=== PATIENT | male | born 1950 | race Caucasian/White ===

== ENCOUNTER → 2017-09-30 08:35 | Outpatient (CLI) | payer MEDICARE, OTHER, SELFPAY ==
--- NOTE | 2017-09-30 08:42 | MR_ITS ---
MR head/brain wo con HISTORY: Severe headaches on the left side ITS.REASON: HEADACHES ORDERING PHYSICIAN: Toñito Calloway MD PATIENT AGE: 67 years COMPARISON: None TECHNIQUE: Standard multiplanar multiecho sequences are performed without contrast. FINDINGS: No midline shift, mass effect, intracranial hemorrhage, or hydrocephalus. No evidence of acute infarction. Small focus of increased T2 signal is present in the external capsule on the right anteriorly consistent with an old small lacunar infarction. There are mild periventricular and subcortical T2 white matter hyperintensities consistent with ischemic gliotic change from microvascular disease. No intra or extra-axial mass. Expected flow void is present in the carotid and basilar arteries. No large aneurysms are evident. Small uterus and may not be detected with this technique and may be better evaluated with MRA if clinically warranted. No mastoid effusion or sinus air-fluid level. Unremarkable calvarium. IMPRESSION: 1. No acute intracranial findings. 2. Old small right lacunar infarction with minimal periventricular ischemic gliotic change.
== END ==
PROVIDERS: Family Provider Internal Medicine Adolescent Medicine; PCP Internal Medicine Adolescent Medicine; Referring Provider Internal Medicine Adolescent Medicine; Visit Provider Internal Medicine Adolescent Medicine
DX: R51 Headache (principal)
CPT/HCPCS: 70551

== ENCOUNTER → 2017-11-20 08:49 | Outpatient (CLI) | payer MEDICARE, OTHER, SELFPAY ==
--- NOTE | 2017-11-20 08:50 | XR_ITS ---
XR foot wt bearing LT 3V COMPARISON: Right foot same date HISTORY: Left foot pain which becomes worse during the day TECHNIQUE: AP lateral and oblique weightbearing views FINDINGS: The tarsal bones metatarsals and phalanges appear intact with no evidence of recent or old fracture. The plantar arch is normal. There are small calcaneal spurs at the insertion of plantar tendon and Achilles tendon the plantar spur is larger left foot than right areas there is arterial calcification similar to the right foot. IMPRESSION: Calcaneal spurs as noted
--- NOTE | 2017-11-20 08:50 | XR_ITS ---
XR foot wt bearing RT 3V COMPARISON: Left foot same date HISTORY: Foot pain that becomes worse during the day TECHNIQUE: AP lateral and oblique views weightbearing FINDINGS: The tarsal bones metatarsals and phalanges appear intact with no evidence of recent or old fracture. The plantar arch is normal. There are tiny spurs of the calcaneus at insertion of plantar tendon and Achilles tendon. There is arterial calcification involving dorsalis pedis and some of the digital branches, is the patient diabetic? IMPRESSION: Tiny calcaneal spurs as noted
== END ==
PROVIDERS: Visit Provider Podiatrist
DX: M79.671 Pain in right foot (principal); M79.672 Pain in left foot
CPT/HCPCS: 73630

== ENCOUNTER → 2018-07-12 07:28 | Outpatient (CLI) | payer MEDICARE, SELFPAY ==
[2018-07-12 09:02] LABS: Alanine Aminotransferase 37 U/L (12-78); Albumin Level 3.8 gm/dL (3.4-5.0); Albumin/Globulin Ratio 1.2 (1.1-1.8); Alkaline Phosphatase 103 U/L (46-116); Anion Gap 14.6 mEq/L (5-15); Bilirubin,Total 0.4 mg/dL (0.2-1.0); Blood Urea Nitrogen 16 mg/dL (7-18); Calcium 8.7 mg/dL (8.5-10.1); Carbon Dioxide 27 mmol/L (21.0-32.0); Chloride 103 mmol/L (98-107); Chol/HDL Ratio 3.5 (1-3.5); Cholesterol 123 mg/dL (140-200); Creatinine,Serum 0.85 mg/dL (0.70-1.30); Estimated Glomerular Filt Rate 90 ml/min (>60); GFR (African American) 109 ML/MIN (>60); Globulin 3.1 gm/dl (1.3-3.2); Glucose 272 mg/dL (74-106); HDL Cholesterol 35 mg/dL (27-67); LDL Cholesterol 63 mg/dL (0-130); Sodium 140 mmol/L (136-145); Thyroid Stimulating Hormone 1.48 uIU/ml (0.358-3.740); Total Protein,Serum 6.9 gm/dL (6.4-8.2); Triglycerides 126 mg/dL (30-200); VLDL Cholesterol 25 mg/dL (0-40)
[2018-07-12 09:10] LABS: Aspartate Amino Transferase 20 U/L (15-37); Potassium 4.6 mmoL/L (3.5-5.1)
== END ==
PROVIDERS: Visit Provider Physician Assistant
DX: I10 Essential (primary) hypertension (principal); I25.10 Atherosclerotic heart disease of native coronary artery without angina pectoris; E78.5 Hyperlipidemia, unspecified; E11.9 Type 2 diabetes mellitus without complications
CPT/HCPCS: 36415; 80053; 80061; 84443

== ENCOUNTER → 2019-08-23 08:36 | Outpatient (POV) | payer MEDICARE, OTHER, SELFPAY | PROVIDERS: Visit Provider Dermatology | DX: Z00.00 Encounter for general adult medical examination without abnormal findings (principal) ==

== ENCOUNTER → 2020-03-31 11:49 | Outpatient (CLI) | payer MEDICARE, OTHER, SELFPAY ==
[2020-03-31 12:59] LABS: Coronavirus 19 IgG Antibody Negative (Negative); Coronavirus 19 IgM Antibody Negative (Negative)
== END ==
PROVIDERS: Visit Provider Internal Medicine Gastroenterology
DX: Z01.818 Encounter for other preprocedural examination (principal); Z12.11 Encounter for screening for malignant neoplasm of colon
CPT/HCPCS: 36415; 86328

== ENCOUNTER 2020-04-02 13:07 | Day surgery (SDC) | payer MEDICARE, OTHER, SELFPAY ==
[2020-03-27 08:49] VITALS: BMI 37.2
[2020-04-02 13:30] VITALS: BP 145/75; PULSE 57; RESP 18; TEMP 36.6; O2SAT 96
[2020-04-02 13:44] LABS: POC Glucose,Bedside 124 (70-110)
[2020-04-02 14:21] VITALS: O2SAT 97
--- NOTE | 2020-04-02 14:24 | HMH.ANESCL ---
[facility] Anesthesia Checklist - Patient Identification Patient Identification: Arm Band - Structural Data Admitted From: Home Planned Operative Procedure/s: colonoscopy Consent for Planned Operative Procedure(s) Verified: Yes Verified Documents: Surgical Consent, History and Physical - NPO Status Verified Time NPO: 00:00 - Additional verifications Anesthesia Reactions: No - Airway Assessment C-Spine Mobility Assessed: Yes (mp2) TMJ Mobility Assessed: Yes Dentition: Good Dentition - Neurological Assessment Level of Consciousness: Awake, Alert - Anesthesia Plan Anesthesia Risk discussed: Yes Anesthesia Plan: Verified ASA Class: III Anesthesia Type: MAC [facility] History I have reviewed the patient's past medical history: Yes Medical History: Reports:: Coronary Artery Disease, Diabetes Mellitus Type 2, Hyperlipidemia, Hypertension Denies:: Cancer, Diabetes Mellitus Type 1, Internal Pacemaker, MRSA, Seizures *Have you ever received a pneumonia vaccine?: Yes *Have you received a flu vaccine this season?: Yes Other Medical History: Reports: Arthritis, Sinus Problems Anesthesia experience/problems:: nac Other Surgeries: Yes: Cardiac Surgery, Cholecystectomy, Colonoscopy, Coronary Stent, Hernia Repair. No: Pacemaker Amputation: No Fractures: No - *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 Last grade of school completed: High school graduate Smoking Status: Never smoker Alcohol Intake: never Alcohol Intake Frequency:: holidays/special occasions only Substance Use Type: denies use *Occupational Status:: retired Housing: house Household Members: spouse *Travel in the last 8 weeks: None Family Hx:: Diabetes, Hyperlipidemia, Hypertension
--- NOTE | 2020-04-02 14:44 | P.PCN_ITS ---
[facility] Procedure Note Procedure Note:: Colonoscopy Procedure Report: Colonoscopy with cold snare polypectomy Endoscopist: Benji Emerson II, MD Referring physician: Toñito Calloway M.D. Date of Procedure: April 02, 2020 Equipment: Olympus 180 variable stiffness pediatric colonoscope Sedation: MAC sedation Indication: Mr. Nguyen is a 69-year-old gentleman who is here for follow-up screening/surveillance colonoscopy. The patient did have a normal colonoscopy in 2008. His last colonoscopy in November 2016 revealed a diminutive polyp (tubular adenoma x1) which was removed. The patient reports no abdominal pain, weight loss, change in his bowel habits or rectal bleeding. He reports no family history of colon cancer. Procedure: Prior to the procedure, a history and physical exam was performed, and patient's medications and allergies were reviewed. The risks, benefits and alternatives of the sedation and procedure were discussed with the patient. All questions were answered and informed consent was obtained. The patient was brought to the procedure room. Patient identification and proposed procedure were verified by the physician and the nurse. The patient was placed in a left lateral decubitus position and the scope was passed under direct vision. Throughout the procedure, the patient's blood pressure, pulse, and oxygen saturations were monitored continuously. The colonoscopy was accomplished without difficulty. The patient tolerated the procedure well. Findings: On digital rectal examination there was normal rectal tone. There were no external hemorrhoids. The prostate was 2-3+, mildly firm but symmetric without nodules. The colonoscope was introduced through the anal canal to the rectum and advanced to the cecum. The ileocecal valve and appendiceal orifice were identified. The scope was advanced a short distance into the ileum which appeared grossly normal. The scope was then withdrawn into the colon. The cecum, ascending and transverse colon and mucosa were grossly normal. There was a diminutive 3 mm polyp in the descending colon removed via cold snare polypectomy. There were scattered diverticuli throughout the descending and sigmoid colon (LEFT colon). The rectum itself was normal. Upon retroflexion within the rectum there were grade 2 internal hemorrhoids. The preparation was excellent throughout with Dunbar Preparation Score of 9. The cecal time was 12 minutes. Impression: 1. Diminutive descending colon polyp 2. Left-sided diverticulosis 3. Grade 2 internal hemorrhoids Plan: I will follow up the polyp pathology and recommend repeat colonoscopy again in 7-10 years based upon the polyp histology. I would encourage bulk fiber supplementation on a long-term daily maintenance basis.
[2020-04-02 14:48] VITALS: BP 105/67; PULSE 60; RESP 12; TEMP 36.8; O2SAT 95
[2020-04-02 14:58] VITALS: BP 105/71; PULSE 61; RESP 16; O2SAT 96
[2020-04-02 15:08] VITALS: BP 131/71; PULSE 59; RESP 16; O2SAT 94
[2020-04-02 15:18] VITALS: BP 122/62; PULSE 60; RESP 16; TEMP 36.8; O2SAT 97
== END 2020-04-02 15:39 | disposition home or self-care (01) ==
LOC: OUTP 13:09
PROVIDERS: PCP Internal Medicine Adolescent Medicine; Visit Provider Internal Medicine Gastroenterology
PROC: 0DJD8ZZ Inspection of Lower Intestinal Tract, Via Natural or Artificial Opening Endoscopic (ICD-10-PCS; CPT 45378; principal; 2020-04-02 14:00)
DX: Z12.11 Encounter for screening for malignant neoplasm of colon (principal); Z86.010 Personal history of colon polyps; K63.5 Polyp of colon; K57.30 Diverticulosis of large intestine without perforation or abscess without bleeding; K64.1 Second degree hemorrhoids; I25.10 Atherosclerotic heart disease of native coronary artery without angina pectoris; E11.9 Type 2 diabetes mellitus without complications; E78.5 Hyperlipidemia, unspecified; I10 Essential (primary) hypertension; M19.90 Unspecified osteoarthritis, unspecified site; Z90.49 Acquired absence of other specified parts of digestive tract; Z95.818 Presence of other cardiac implants and grafts
CPT/HCPCS: 45385; 82962; 88305

== ENCOUNTER → 2020-12-03 09:28 | Outpatient (CLI) | payer MEDICARE, OTHER, SELFPAY ==
[2020-12-03 10:11] LABS: Basophils % 0.7 % (0.1-2.0); Eosinophils # 0.1 K/mm3 (0.0-0.4); Eosinophils % 1.5 % (0.1-12.0); Hematocrit 43.7 % (42.0-52.0); Hemoglobin 14.6 g/dL (14.1-18.0); Lymphocytes # 1.4 K/mm3 (0.7-4.5); Lymphocytes % 25.4 % (10-50); Mean Corpuscular HGB Conc 33.5 g/dL (31.8-35.4); Mean Corpuscular Hemoglobin 30.2 pg (27.0-31.2); Mean Corpuscular Volume 90.2 fl (80-94); Mean Platelet Volume 7.5 fl (7.4-10.4); Monocytes # 0.5 K/mm3 (0.1-1.0); Monocytes % 9.2 % (1.7-9.3); Neutrophils # 3.5 K/mm3 (1.8-7.8); Neutrophils % 63.2 % (37.0-80.0); Platelet Count 221 K/mm3 (142-424); Red Blood Count 4.85 M/mm3 (4.60-6.20); Red Cell Distribution Width 14.2 % (11.5-17.5); White Blood Count 5.6 K/mm3 (4.8-10.8)
[2020-12-03 10:41] LABS: Alanine Aminotransferase 23 U/L (12-78); Albumin Level 4.6 g/dl (3.5-5.0); Albumin/Globulin Ratio 1.9 (1.1-1.8); Alkaline Phosphatase 60 U/L (38-126); Anion Gap 12.1 mEq/L (5-15); Aspartate Amino Transferase 27 U/L (17-59); Bilirubin,Total 0.5 mg/dl (0.2-1.3); Blood Urea Nitrogen 18 mg/dl (9-20); Calcium 9.5 mg/dl (8.4-10.2); Carbon Dioxide 28 mmol/L (22.0-30.0); Chloride 103 mmol/L (98-107); Chol/HDL Ratio 3.2 (1-3.5); Cholesterol 119 mg/dl (140-200); Estimated Glomerular Filt Rate 83 ml/min (>60); GFR (African American) 101 ML/MIN (>60); Globulin 2.4 g/dL (1.3-3.2); Glucose 132 mg/dl (74-100); HDL Cholesterol 37 mg/dl (40-60); Potassium 5.1 mmoL/L (3.5-5.1); Sodium 138 mmol/L (136-145); Triglycerides 74 mg/dl (30-150); VLDL Cholesterol 15 mg/dL (0-40)
[2020-12-03 10:52] LABS: Direct LDL Cholesterol 63.86 mg/dL (100-129)
[2020-12-03 11:21] LABS: Hemoglobin A1C 6.4 % (4.0-6.0)
== END ==
PROVIDERS: Visit Provider Internal Medicine Adolescent Medicine
DX: E11.9 Type 2 diabetes mellitus without complications (principal); E78.5 Hyperlipidemia, unspecified; I25.10 Atherosclerotic heart disease of native coronary artery without angina pectoris; Z79.84 Long term (current) use of oral hypoglycemic drugs
CPT/HCPCS: 36415; 80053; 80061; 83036; 85025

== ENCOUNTER → 2021-02-11 15:35 | Outpatient (CLI) | payer MEDICARE, OTHER, SELFPAY ==
--- NOTE | 2021-02-11 15:41 | XR_ITS ---
PROCEDURE: XR SHOULDER RT MIN 2V CLINICAL INDICATION: TENDINITIS OF RT ROTATOR CUFF COMPARISON: CR SHOU3R [id number] VIEWS from 02/05/2015 FINDINGS: No fracture or dislocation. No lytic or blastic change. There is normal mineralization. Mild osteoarthritic changes are present involving the glenohumeral joint. The humeral head is slightly high-riding. There is some sclerosis along the greater tuberosity. Small concavity noted along the humeral neck medially which could be due to prior injury. The AC joint has an unremarkable appearance. IMPRESSION: Degenerative changes. Small concavity noted along the humeral neck medially which could be posttraumatic. MRI may provide further evaluation if clinically desired. Dictated by: Reymundo Harding MD 02/11/2021 16:15 Reymundo Harding MD in [place] 02/11/2021 16:15
== END ==
PROVIDERS: PCP Internal Medicine Adolescent Medicine; Visit Provider Internal Medicine Adolescent Medicine
DX: M75.81 Other shoulder lesions, right shoulder (principal)
CPT/HCPCS: 73030

== ENCOUNTER → 2021-02-21 09:21 | Outpatient (CLI) | payer MEDICARE, OTHER, SELFPAY ==
--- NOTE | 2021-02-21 09:33 | MR_ITS ---
PROCEDURE: MR SHOULDER RT WO CON CLINICAL INDICATION: PAIN IN RIGHT SHOULDER COMPARISON: No exams were available for comparison TECHNIQUE: Routine multiplanar multi echo sequences of the right shoulder joint are performed without gadolinium enhancement. FINDINGS: There is a complex full-thickness partial width tear of mid fibers of supraspinatus. Supraspinatus tendinopathy is noted. Mild supraspinatus muscle atrophy. The infraspinatus, anterior is minor are intact. There is tendinopathy of the subscapularis. High-grade partial thickness tear of the superior fibers of subscapularis with the intrasubstance extension of the tear. There is fraying of the long head of the biceps tendon with the T2 hyperintensity within the bicipital groove with normal loss of normal low signal of the biceps tendon concerning for tear. Multiple degenerative cystic changes are noted within the humeral head. Signal abnormality is noted within the anterior and posterior labrum, raises the concern for tears. This is incompletely evaluated on the current non arthrographic study. Small joint effusion is noted. Fluid is noted in the subacromial/subdeltoid bursa. Fluid is noted in the subscapular bursa. Moderate degenerative changes of the acromioclavicular joint noted. IMPRESSION: Complex full-thickness partial width tear of the mid fibers of supraspinatus. Mild to moderate atrophy of the supraspinatus noted. Subscapularis tendon tear with intrasubstance extension of the tear. Findings are consistent with the biceps tendon tear with fluid within the bicipital groove. Signal abnormality in the labrum, raises the concern for labral tears. Degenerative changes of the acromioclavicular and glenohumeral joints. Dictated by: Yaritza Brunner 02/21/2021 10:43 Yaritza Brunner in [facility] 02/21/2021 10:43
== END ==
PROVIDERS: PCP Internal Medicine Adolescent Medicine; Visit Provider Internal Medicine Adolescent Medicine
DX: M25.511 Pain in right shoulder (principal); M75.81 Other shoulder lesions, right shoulder
CPT/HCPCS: 73221

== ENCOUNTER → 2021-06-03 10:03 | Outpatient (CLI) | payer MEDICARE, OTHER, SELFPAY ==
[2021-06-03 11:37] LABS: Prostate Specific Ag Screen 0.7 ng/ml (0.0-4.0)
[2021-06-04 09:12] LABS: Testosterone,Total 134 ng/dL (264-916)
== END ==
PROVIDERS: Visit Provider Urology
DX: Z12.5 Encounter for screening for malignant neoplasm of prostate (principal)
CPT/HCPCS: 36415; 84403; G0103

== ENCOUNTER → 2021-06-18 10:44 | Outpatient (CLI) | payer MEDICARE, OTHER, SELFPAY ==
--- NOTE | 2021-06-18 10:47 | US_ITS ---
PROCEDURE: US TESTICULAR CLINICAL INDICATION: HYDROCELE, BILATERAL COMPARISON: No exams were available for comparison FINDINGS: The right testicle is 5.6 x 3.5 x 3.3 cm. Blood flow is present. No testicular mass apparent. No hydrocele or varicocele Left testicle is 5 x 3.2 x 4.3 cm. No testicular mass apparent. Blood flow is present. There is a 2 cm epididymal cyst noted at the head of the epididymis. No hydrocele or varicocele IMPRESSION: 2 cm left epididymal head cyst otherwise negative Dictated by: Reymundo Harding MD 06/19/2021 08:51 Reymundo Harding MD in [facility] 06/19/2021 08:51
[2021-06-19 12:11] LABS: FSH 6.4 mIU/mL (1.5-12.4); LH 9.9 mIU/mL (1.7-8.6); Prolactin 7.1 ng/mL (4.0-15.2); Testosterone,Total 140 ng/dL (264-916)
== END ==
PROVIDERS: PCP Internal Medicine Adolescent Medicine; Visit Provider Urology
DX: N43.3 Hydrocele, unspecified (principal); R79.89 Other specified abnormal findings of blood chemistry
CPT/HCPCS: 36415; 76870; 83001; 83002; 84146; 84403

== ENCOUNTER → 2021-07-08 07:40 | Outpatient (CLI) | payer MEDICARE, OTHER, SELFPAY ==
[2021-07-08 07:43] LABS: Microscopic, Urine URINE MICROSCOPIC (MICROSCOPIC)
[2021-07-08 07:57] LABS: Appearance,Urine CLEAR (Clear); Bilirubin,Urine Negative (Negative); Blood, Urine Negative (Negative); Color,Urine YELLOW (Yellow); Glucose,Urine (UA) 3+ (Negative); Ketones,Urine Negative (Negative); Leukocyte Esterase,Urine Negative (Negative); Nitrate,Urine Negative (Negative); PH,Urine 5.5 (5.0-8.5); Protein,Urine Negative (Negative); Urobilinogen,Urine 0.2 EU/dl (0.2)
[2021-07-08 07:59] LABS: Basophils # 0.1 K/mm3 (0-0.2); Basophils % 0.8 % (0.1-2.0); Eosinophils # 0.2 K/mm3 (0.0-0.4); Eosinophils % 2.6 % (0.1-12.0); Hematocrit 41.7 % (42.0-52.0); Hemoglobin 14.4 g/dL (14.1-18.0); Lymphocytes # 1.6 K/mm3 (0.7-4.5); Lymphocytes % 22.6 % (10-50); Mean Corpuscular HGB Conc 34.4 g/dL (31.8-35.4); Mean Corpuscular Hemoglobin 31.3 pg (27.0-31.2); Mean Corpuscular Volume 90.9 fl (80-94); Mean Platelet Volume 7.5 fl (7.4-10.4); Monocytes # 0.5 K/mm3 (0.1-1.0); Monocytes % 6.9 % (1.7-9.3); Neutrophils # 4.8 K/mm3 (1.8-7.8); Neutrophils % 67.1 % (37.0-80.0); Platelet Count 251 K/mm3 (142-424); Red Blood Count 4.59 M/mm3 (4.60-6.20); Red Cell Distribution Width 14.1 % (11.5-17.5); White Blood Count 7.1 K/mm3 (4.8-10.8)
[2021-07-08 08:12] LABS: Squamous Epithelial Cell,Urine Occasional #/hpf (0-5); WBC,Urine Occasional #/hpf (0-3)
[2021-07-08 09:46] LABS: Chloride 97 mmol/L (98-107); Potassium 4.4 mmoL/L (3.5-5.1); Sodium 137 mmol/L (136-145)
[2021-07-08 09:49] LABS: Alanine Aminotransferase 26 U/L (12-78); Albumin Level 4.6 g/dl (3.5-5.0); Albumin/Globulin Ratio 1.9 (1.1-1.8); Alkaline Phosphatase 79 U/L (38-126); Anion Gap 14.4 mEq/L (5-15); Aspartate Amino Transferase 32 U/L (17-59); Bilirubin,Total 0.6 mg/dl (0.2-1.3); Blood Urea Nitrogen 21 mg/dl (9-20); Calcium 9.4 mg/dl (8.4-10.2); Carbon Dioxide 30 mmol/L (22.0-30.0); Estimated Glomerular Filt Rate 96 ml/min (>60); GFR (African American) 116 ML/MIN (>60); Globulin 2.4 g/dL (1.3-3.2); Glucose 161 mg/dl (74-100)
== END ==
PROVIDERS: Visit Provider Orthopaedic Surgery
DX: Z01.818 Encounter for other preprocedural examination (principal)
CPT/HCPCS: 36415; 80053; 81001; 85025

== ENCOUNTER → 2021-07-13 12:17 | Outpatient (CLI) | payer MEDICARE, OTHER, SELFPAY | PROVIDERS: Visit Provider Orthopaedic Surgery | DX: Z01.818 Encounter for other preprocedural examination (principal); Z11.52 Encounter for screening for COVID-19 | CPT/HCPCS: 36415; 86850; C9803; U0003; U0005 ==

== ENCOUNTER 2021-07-15 07:20 | Observation (INO) | payer MEDICARE, OTHER, SELFPAY ==
--- NOTE | 2021-07-03 13:10 | SW/DCPLANNER ---
CALLED PATIENT THIS AFTERNOON REGARDING HIS UPCOMING SURGERY ON HIS SHOULDER ON 07/[address] POSEY... I EXPLAINED TO HIM THAT HE WOULD BE MORE THAN LIKELY GOING TO SPEND THE NIGHT AND I WOULD SEE HIM THE NEXT MORNING FOR ANY HOME CARE THAT HE MAY NEED.
[2021-07-09 10:41] VITALS: BMI 36.5
[2021-07-15] VITALS (23 sets, daily range): BP systolic 108–165; BP diastolic 45–93; PULSE 68–94; RESP 12–18; TEMP 36.1–43; O2SAT 89–97; BMI 33.6
[2021-07-15 06:32] LABS: Coronavirus 19, PCR Not Detected (NotDetected); Influenza A, PCR Not Detected (NotDetected); Influenza B, PCR Not Detected (NotDetected)
--- NOTE | 2021-07-15 09:11 | P.PN_ITS ---
[facility] Anesthesia Checklist - Structural Data Admitted From: Home Planned Operative Procedure/s: r total shoulder Consent for Planned Operative Procedure(s) Verified: Yes - Additional verifications Anesthesia Reactions: No Hx Blood Transfusions: No Blood Transfusion Reaction: No - Airway Assessment C-Spine Mobility Assessed: Yes TMJ Mobility Assessed: Yes Dentition: Good Dentition - Neurological Assessment Level of Consciousness: Awake, Alert, Appropriate - Anesthesia Plan Anesthesia Risk discussed: Yes Anesthesia Plan: Verified ASA Class: III Anesthesia Type: General w/block - Preoperative Comments Pre-Operative Comments: BP block exp to pt incl risks. pt agrees to proceed [facility] History I have reviewed the patient's past medical history: Yes Medical History: Reports:: Coronary Artery Disease, Diabetes Mellitus Type 2, Hyperlipidemia, Hypertension Denies:: Cancer, Diabetes Mellitus Type 1, Internal Pacemaker, MRSA, Seizures *Have you ever received a pneumonia vaccine?: Yes *Have you received a flu vaccine this season?: Yes Other Medical History: Reports: Arthritis, Sinus Problems. Denies: Blood Transfusion Reaction Anesthesia experience/problems:: none Laterality Cases: Bilateral: Carpal Tunnel Release, Cataract Other Surgeries: Yes: Cardiac Surgery, Cholecystectomy, Colonoscopy, Coronary Stent, Hernia Repair. No: Pacemaker Amputation: No Fractures: No - *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 Last grade of school completed: Some college Smoking Status: Never smoker #Yrs smoked (if former smoker): 15 Smoking End Date: 34 years Alcohol Intake: never Alcohol Intake Frequency:: holidays/special occasions only Substance Use Type: denies use *Occupational Status:: retired Housing: house Household Members: spouse *Travel in the last 8 weeks: None Family Hx:: Cancer
--- NOTE | 2021-07-15 09:14 | HMH.PHAINT ---
MEDICATION RECONCILIATION COMPLETED ON PATIENT USING EXTERNAL FILL HISTORY FROM PHARMACY. -RESHMA ALARCON, ROSALBAD
--- NOTE | 2021-07-15 09:20 | SUR.OPER ---
5552-family updated at this time via preoperative staff
--- NOTE | 2021-07-15 11:58 | SUR.OPER ---
1158-pt's wound irrigated with betadine/saline combination for 3 minutes at this time per Dr. Brunner
--- NOTE | 2021-07-15 12:10 | SUR.OPER ---
1106-additional Ancef 1gm administered per ole moreno as ordered per Dr. Brunner, see anesthesia record for details
--- NOTE | 2021-07-15 12:27 | SUR.OPER ---
1227-pt's updated at this time
--- NOTE | 2021-07-15 12:53 | P.PN_ITS ---
[facility] Anesthesia Record Part I Intake, IV Amount: 2,000 Estimated blood loss (mL): 100 Urine output (mL): 500 Blood Pressure: 110/64 SaO2: 96 Pulse Rate: 80 Respiratory Rate: 12 Temperature: 97.9 F Patient is:: Awake, Stable Stable to PACU at:: 12:45
--- NOTE | 2021-07-15 12:56 | XR_ITS ---
PROCEDURE: XR SHOULDER RT 1V CLINICAL INDICATION: Dr. ruiz Follow-up surgery COMPARISON: CR SHOU3R [id number] VIEWS from 02/05/2015 CR XR SHOULDER RT MIN 2V from 02/11/2021 FINDINGS: S/p total shoulder replacement with good alignment. Soft tissue gas noted. Atelectatic changes right lower lobe IMPRESSION: Good alignment status post shoulder replacement Dictated by: Reymundo Harding MD 07/17/2021 11:37 Reymundo Harding MD in [place] 07/17/2021 11:37
[2021-07-15 13:23] LABS: POC Glucose,Bedside 214 (70-110)
--- NOTE | 2021-07-15 13:37 | HMH.OPNOTE ---
Date of procedure: 07/15/21 Pre-op Diagnosis:: Rotator cuff tear arthropathy, right shoulder Post-op Diagnosis:: Same Procedure performed:: Reverse shoulder arthroplasty, right Surgeon:: William Brunner MD Inspector Rough Castings(s):: Saba Aguilar PA-C LEASE OPERATOR:: Raymond Walter Anesthesia: GETA, regional (Interscalene nerve block) Estimated blood loss (mL): 100 Clinical Note:: Patient is a 71-year-old male with degenerative changes in the right shoulder secondary to chronic rotator cuff tear. He is having significant pain, weakness, loss of shoulder range of movements and disability secondary to the cuff tear and arthritis. Please refer to my office note for full details. Operative findings:: Degenerative changes involving both glenoid and humeral head as noted on the preoperative imaging. Patient also had complete full-thickness tears of the supraspinatus and infraspinatus tendons along with partial upper border tear of the the subscapularis tendon. The teres minor tendon was intact. The biceps tendon was noted to be torn and absent in the bicipital groove. Operative note:: The patient was identified in the preoperative holding area. Risks were discussed with the patient, who again consented to the surgical procedure. The site and side were marked and initialed by me. [Patient received interscalene nerve block administered by the geomatics professor in the preoperative area.] Patient was taken to the operating room and placed under general anesthesia and positioned in a beach chair position with the head in neutral position. All the bony prominences were appropriately padded. The upper extremity was prepped and draped in the usual sterile fashion. Skin incision was marked for a deltopectoral approach. The operative site was then sealed off with Ioban drape. A preprocedure timeout was performed as per hospital protocol. Administration of preoperative prophylactic antibiotics (IV Ancef and vancomycin) was confirmed with the geomatics professor. A 10 cm long incision was made over the deltopectoral interval. Using a combination of Bovie cautery and blunt dissection, the deltopectoral interval was developed mobilizing the cephalic vein medially. The underlying fascia was incised and a combination of careful sharp and blunt dissection was used to free up the subdeltoid, subcoracoid and subacromial intervals. Rotator cuff pathology involving the subscapularis, supraspinatus and part of infraspinatus were identified. Excess degenerative rotator cuff was released and excised. The biceps tendon was absent in the groove. Inferiorly the capsule was carefully released and the humeral head was gently dislocated anteriorly. An external cutting guide was placed along the humerus and the humeral head and surrounding osteophytes were resected. A canal finder followed by sequential reaming and broaching was performed, and the trial broach was left in position. A calcar planar was used to fine-tune the depth, varus/valgus and version of the humeral cut. Retractors were then placed around the glenoid and the labrum was excised all around. The axillary nerve was identified by tug test and a careful capsular release was performed after protecting the axillary nerve. Osteophytes mainly anteriorly over the glenoid were removed with a rongeur. Guide pin was drilled into the central inferior aspect of the glenoid at 10 degrees of inferior tilt using the drill guide. The glenoid was then reamed. A standard Dayo reunion baseplate with a center screw and 4 peripheral locking screws was opened and assembled onto the glenoid with excellent initial fixation. Based off trialing and soft tissue tension, a [place] reunion is size 12 humeral stem with a 4 mm humeral socket and 4 mm poly-liner was opened and assembled on the back table. A 36+6 glenosphere was opened and assembled onto the baseplate. The humeral stem and the humeral sided components were then malleted into position in the proper depth and ve
--- NOTE | 2021-07-15 13:48 | SUR.PHASEI ---
1334- detailed report called to [facility]. 1336- pt left in stable condition with [facility] at this time. Polar pack and sling transferred to the floor with the patient. Alton informed about clamping the LEIGHTON drain on the right shoulder after two hours per verbal orders in the OR. 1230- pt blood sugar at this time -210
--- NOTE | 2021-07-15 13:54 | P.CONPHA_ITS ---
[facility] Pharmacy VTE Monitoring - Patient Demographics Admission date: 07/15/21 Report Date: 07/15/21 Time: 13:54 Allergies/Adverse Reactions: Patient Allergies No Known Allergies Allergy (Verified 07/15/21 06:26) Height: 1.73 m Weight: 108.862 kg - Prophylaxis VTE Prophylaxis Ordered?: Yes Types of VTE Prophylaxis: IPCS Thigh High Location of Applied Device: Bilateral Lower Extremeties
[2021-07-15 14:11] LABS: Microscopic,Cath URINE MICROSCOPIC (MICROSCOPIC)
[2021-07-15 15:48] LABS: Basophils % 0.1 % (0.1-2.0); Eosinophils % 0.1 % (0.1-12.0); Hematocrit 38.9 % (42.0-52.0); Hemoglobin 12.8 g/dL (14.1-18.0); Lymphocytes # 0.7 K/mm3 (0.7-4.5); Lymphocytes % 6.7 % (10-50); Mean Corpuscular Hemoglobin 30.6 pg (27.0-31.2); Mean Corpuscular Volume 92.7 fl (80-94); Monocytes # 0.2 K/mm3 (0.1-1.0); Monocytes % 1.8 % (1.7-9.3); Neutrophils # 9.3 K/mm3 (1.8-7.8); Neutrophils % 91.3 % (37.0-80.0); Platelet Count 219 K/mm3 (142-424); Red Blood Count 4.19 M/mm3 (4.60-6.20); Red Cell Distribution Width 13.7 % (11.5-17.5); White Blood Count 10.2 K/mm3 (4.8-10.8)
[2021-07-15 15:53] LABS: MANUAL DIFFERENTIAL MANUAL DIFFERENTIAL (MANUAL DIFF)
[2021-07-15 16:19] LABS: Appearance,Urine/Cath CLEAR (Clear); Bilirubin,Cath Negative (Negative); Blood, Urine/Cath Negative (Negative); Color,Urine/Cath YELLOW (Yellow); Glucose,Urine/Cath (UA) 3+ (Negative); Ketones,Urine/Cath Negative (Negative); Leukocyte Esterase,Cath Negative (Negative); Nitrate,Cath Negative (Negative); Protein,Urine/Cath Negative (Negative); Specific Gravity, Urine/Cath 1.025 (1.005-1.030); Urobilinogen,Cath 0.2 EU/dl (0.2)
[2021-07-15 16:30] LABS: Anion Gap 12.8 mEq/L (5-15); Blood Urea Nitrogen 26 mg/dl (9-20); Calcium 8.4 mg/dl (8.4-10.2); Carbon Dioxide 25 mmol/L (22.0-30.0); Chloride 102 mmol/L (98-107); Creatinine Clearance Estimated 106 mL/min (50-200); Estimated Glomerular Filt Rate 96 ml/min (>60); GFR (African American) 116 ML/MIN (>60); Glucose 192 mg/dl (74-100); Potassium 4.8 mmoL/L (3.5-5.1); Sodium 135 mmol/L (136-145)
[2021-07-15 16:41] LABS: Hemoglobin A1C 7.1 % (4.0-6.0)
[2021-07-15 17:20] LABS: POC Glucose,Bedside 189 (70-110)
[2021-07-15 17:43] LABS: Anisocytosis 1+; Eosinophils % 1 % (0-3); Lymphocytes % 12 % (10-50); Monocytes % 10 % (2-9); Neutrophils % 77 % (42-76); Platelet Estimate Normal; Total Cells Counted 100
--- NOTE | 2021-07-15 20:42 | HMH.ORTHHP ---
*Admission Date: 07/15/21 *Reason for consult:: Right reverse shoulder arthroplasty *History of present illness: Patient is a 70-year-old male with advanced degenerative changes in his right shoulder secondary to rotator cuff tear arthropathy who was admitted to the hospital electively following an elective reverse shoulder arthroplasty today 07/15/2021. Prior to surgery the patient had longstanding pain, stiffness, pseudoparalysis, and disability in his right shoulder. He reports significant symptoms and severe pain particularly with overhead movements of the right arm. Additionally he reports frequent sleep disturbances and states he has difficulty with many activities of daily living. He has failed to respond to conservative management including NSAIDs, Tylenol, and rest. A reverse shoulder arthroplasty is indicated to reduce his pain, improve function, improve range of motion, and his quality of life. He rates his pain an 8 out of 10 at rest and a 10 out of 10 at its worst. He denies any previous history of significant shoulder injury, fractures, local steroid injections, or surgery. The surgical and nonsurgical alternatives were discussed in detail with the patient as well as the risks and benefits associated with surgery. Following evaluation in the office, the patient wishes to proceed with a right reverse shoulder arthroplasty. He denies distal paresthesias, radicular symptoms, chest pain, shortness of breath, palpitations, or any other symptoms at this time. His past medical history includes type 2 diabetes, coronary artery disease, hyperlipidemia, and hypertension. [facility] History I have reviewed the patient's past medical history: Yes Medical History: Reports:: Coronary Artery Disease, Diabetes Mellitus Type 2, Hyperlipidemia, Hypertension Denies:: Cancer, Diabetes Mellitus Type 1, Internal Pacemaker, MRSA, Seizures *Have you ever received a pneumonia vaccine?: No *Have you received a flu vaccine this season?: Yes Other Medical History: Reports: Arthritis, Sinus Problems. Denies: Blood Transfusion Reaction Anesthesia experience/problems:: none Laterality Cases: Bilateral: Carpal Tunnel Release, Cataract Other Surgeries: Yes: Cardiac Catheterization, Cardiac Surgery, Cholecystectomy, Colonoscopy, Coronary Stent, Hernia Repair. No: Pacemaker Amputation: No Fractures: No - *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 Last grade of school completed: Some college Smoking Status: Never smoker #Yrs smoked (if former smoker): 15 Smoking End Date: 34 years Alcohol Intake: never Alcohol Intake Frequency:: holidays/special occasions only Substance Use Type: denies use *Occupational Status:: retired Housing: house Household Members: spouse *Travel in the last 8 weeks: None Family Hx:: No significant family history Review of Systems - Review of Systems Review of systems:: pertinent systems reviewed and negative unless documented below - Constitutional Denies anorexia, Denies body ache(s), Denies fatigue, Denies fever(s), Denies weakness - Eyes Denies blurry vision, Denies change in vision, Denies double vision, Denies loss of vision - ENT Denies abnormal hearing, Denies dizziness, Denies difficulty swallowing, Denies nasal congestion, Denies neck pain, Denies dizziness - *Cardiovascular Denies chest pain, Denies chest pain at rest, Denies shortness of breath, Denies generalized swelling - *Respiratory Denies chest congestion, Denies cough, Denies shortness of breath, Denies stridor, Denies wheezing - *Gastrointestinal Denies abdominal pain, Denies change in stools, Denies constipation, Denies nausea, Denies vomiting - *Genitourinary Denies difficulty urinating, Denies painful urination, Denies urinary frequency, Denies urinary incontinence, Denies urinary urgency - *Musculoskeletal Reports joint pain, Reports limited joint movement, Reports stiffness, Denies abnormal walking, Denies body aches, Denies neck pain, Denies numbness, Denies tingling - *Neurologi
[2021-07-15 21:11] LABS: POC Glucose,Bedside 225 (70-110)
[2021-07-16 01:50] VITALS: BP 114/74; PULSE 89; RESP 19; TEMP 36.5; O2SAT 100
[2021-07-16 04:00] VITALS: BP 108/59; PULSE 69; RESP 17; TEMP 36.4; O2SAT 100
--- NOTE | 2021-07-16 04:48 | PC.NURSE ---
pt has rested intermittently t/o shift, polar pack in place to right shoulder with LEIGHTON drain in place, has not complained of any pain this shift, has complained of numbness in left leg and foot, can move right fingers and has good pulses, has remained on room air t/o shift
[2021-07-16 04:56] VITALS: BMI 34.1
[2021-07-16 06:00] LABS: POC Glucose,Bedside 171 (70-110)
[2021-07-16 08:00] VITALS: BP 125/64; PULSE 70; RESP 23; TEMP 36.6; O2SAT 93; O2SAT 96
--- NOTE | 2021-07-16 09:25 | HMH.ORTHPN ---
Subjective Date: 07/16/21 Time: 08:40 Principal diagnosis: S/p right reverse shoulder arthroplasty Interval history: Patient is a 70-year-old male who underwent a right reverse shoulder arthroplasty yesterday 07/15/2021. Today the patient is postop day #1. This morning he is lying comfortably in bed. He reports that he is having some right shoulder pain but that it is well controlled with pain medication. He states that he is eating and drinking well. This morning he reports that sensation has returned to his right upper extremity. He denies nausea, vomiting, fever, chills, rigors, distal tingling/numbness, or any other symptoms at this time. He does report mild numbness in the left great toe and sole of the left foot. PN: Obj Ex Vital signs: Temp Pulse Resp BP Pulse Ox 97.5 F L 69 17 108/59 L 100 07/16/21 04:00 07/16/21 04:00 07/16/21 04:00 07/16/21 04:00 07/16/21 04:00 - Constitutional no acute distress, obese, cooperative - Routine HEENT Exam Head: Present: normocephalic, atraumatic Eye: Present: EOMI, PERRL ENT: Present: mucous membranes moist - Routine Neck Exam Present: supple, full ROM, trachea midline. Absent: JVD, lymphadenopathy - Routine Respiratory Exam Absent: accessory muscle use, respiratory distress Comments: Symmetric chest movement, able to speak in complete sentences - Routine Cardiovascular Exam Present: RRR. Absent: JVD Comments: Normal peripheral pulses - Routine Abdominal Exam Present: soft. Absent: tenderness - Routine Extremities Exam Present: pulses intact, normal capillary refill. Absent: cyanosis Comments: Upon examination of the right upper extremity: The surgical dressings over the right shoulder are clean, dry, and intact. No evidence of drainage or bleeding noted. There is a right arm sling in place. Upon removal of the dressings, the surgical incision appears clean, dry, and healthy. No erythema, induration, drainage, or other signs of infection noted. The surgical drain is in place and approximately 25 cc of drainage is currently noted. Radial pulse 2+; capillary refill is brisk in all fingers. Sensation to light touch is grossly intact. Patient is actively mobilizing the elbow, wrist, and fingers. - Routine Skin Exam Present: intact, warm, normal turgor. Absent: cyanosis, erythema, jaundice - Routine Neurological Exam Present: alert, oriented X3, moving all extremities, normal tone, normal speech. Absent: motor deficit - Routine Psychiatric Exam Present: normal affect, cooperative Progress Note: A&P (1) S/p reverse total shoulder arthroplasty Status: Acute Assessment and Plan for All Diagnoses:: I have reviewed the clinical findings with the patient. This morning he is doing well from an orthopedic standpoint. His surgical dressings were changed and the incision appears clean, dry, and healthy. No evidence of drainage or bleeding noted. His surgical drain was also removed today without complication. Patient's right arm is in a sling, instructed patient to continue use of the arm sling in addition to placing a pillow behind the elbow when lying down or sleeping for 6 weeks postop. Advised patient to actively mobilize the elbow, wrist, and fingers as much as is comfortable; avoid any active shoulder movements. Continue rest, ice, elevation, and as needed pain medication. Case management looking into discharge planning. Continue home medications as ordered.
[2021-07-16 12:00] VITALS: BP 112/62; PULSE 80; RESP 21; TEMP 36.4; O2SAT 92
[2021-07-16 14:10] VITALS: BMI 34.0
--- NOTE | 2021-07-16 14:33 | HMH.PTEV ---
Physical Therapy Evaluation Rehab PT IP Evaluation Start: 07/16/21 13:46 Freq: ONCE Status: Active Protocol: Document 07/16/21 14:30 DEEPA (Rec: 07/16/21 14:33 DEEPA [id number]) Subjective/History History History Pt was admitted to [facility] for obsertvation s/p R TSA. Pt developed LLE neuropraxia during sugery. Subjective Subjective Pt reports not being able to feel L foot, but states it is imporved fromearlier today. Rehab PT IP Eval Objective Appearance Patient Behavior Appropriate,Cooperative Patient Orientation Person,Place,Time,Name Difficulty following instructions none Speech Pattern Clear,Appropriate Ambulation Patient Able to Ambulate Yes Ambulation Observation IP General Gait Pattern Observation Antalgic Gait Ambulation Distance (feet) 25 Ambulation Assistive Device Straight Cane Ambulation Ability Contact Guard/Hand Hold Balance Ability to Arise Able, uses arms to help Sitting Balance Steady, safe Standing Balance Steady, wide stance Dynamic Sitting Balance Ability Normal Dynamic Standing Balance Ability Fair Transfers Chair Transfer Ability Independent Sit to Stand Chair Transfer Ability Independent ROM All Extremities PT ROM Status WFL Abnormal ROM Comment RUE in sling MMT LLE PT MMT WFL Abnormal MMT Grade knee flex/ext 5/5, ankle PF/DF 4+/5 All Extremities PT MMT WFL Abnormal MMT Grade RUE not tested d/t sx Rehab PT IP prob,goals,plan Problems Date of Evaluation: 07/16/21 PT IP Problems Gait,Balance Rehab Potential Rehab Potential Good Discharge Plan PT Discharge Plan Pt to dc to home w/ spouse G -code Required Yes Eval Complexity Eval Charge Codes 28620 - Low Complexity G Codes PT Current Status Modifier CI-At least 1% but less than 20% impaired, limited or restricted PT Goal Status Mobility PT Goal Status Modifer CI-At least 1% but less than 20% impaired, limited or restricted PHYSICIAN CERTIFICATION: I certify the specified therapy services for Jeffry Nguyen are required, authorized, and reviewed every 30 days.
--- NOTE | 2021-07-16 14:41 | SW/DCPLANNER ---
RECEIVED REFERRAL FOR THIS PATIENT FOR DISCHARGE PLANNING: PATIENT PRESENTED INTO [facility] FOR A ROTATOR CUFF OF RIGHT SHOULDER.. THE PLAN IS FOR HIM TO RETURN HOME BUT HE HAS STATED TO DR POSEY HIS LEG IS NUMB... DR POSEY STATED HE THINKS ITS BECAUSE HE WAS ON THE SURGERY TABLE LONGER THAN HE HAD ANTICIPATED HIM TO BE... PATIENTS SAID HE IS GOING TO NEED A BEDSIDE COMMODE AND THIS WILL BE SET UP AT TIME OF DISPOSITION...IF NUMBNESS LEAVES HE MAY DISCHARGE IN THE AM PENDING NO OTHER SETBACKS....CM WILL FOLLOW
[2021-07-16 16:00] VITALS: BP 109/56; PULSE 68; RESP 17; TEMP 37.4; O2SAT 95
--- NOTE | 2021-07-16 17:15 | HMH.DCSUM ---
General - General Admission date:: 07/15/21 Discharge date: 07/16/21 HPI HPI: Patient is a 71-year-old male, with rotator cuff tear arthropathy, who is admitted to the hospital following an elective right reverse shoulder arthroplasty on 07/15/2021. Prior to surgery patient had long-standing pain, weakness, and disability secondary to advanced cuff tear with secondary degenerative changes in the right shoulder. Patient has not responded well to conservative management including NSAID, Tylenol, and intra-articular injections in the past. A reverse shoulder arthroplasty is indicated to reduce the pain, improve function, range of movements and quality of life. The surgical and nonsurgical alternatives were discussed in detail with the patient as well as the risks and benefits of the surgery.. Please refer to Orthopedic office notes for full details Hospital Course Hospital Course: Patient underwent a successful and uncomplicated reverse shoulder arthroplasty on 07/15/2021. Following surgery patient was admitted to hospital and progressed well without any complications. The postoperative check x-ray was satisfactory with good alignment and fixation of the components. After overnight hospital stay for observation, patient was discharged to home with self-care on 07/16/2021. Patient has minimal pain, which is well controlled with as needed oral medication. The incision is healthy and the surgical drain was removed; no signs of any erythema, induration or discharge noted. The neurovascular status in the right upper extremity is intact. Distal pulses 2+ bilaterally and fully sensate to light touch distally. No clinical evidence of DVT noted. Following surgery patient developed numbness over the sole of the left foot and left great toe. No motor deficit noted. Patient's vital signs have been stable throughout and patient is afebrile at the time of discharge. He is being discharged home with family/self-care. Condition at discharge: improving and stable. Treatments and Procedures: Reverse shoulder arthroplasty, right; date of surgery 07/15/2021. Objective Vital signs: Temp Pulse Resp BP Pulse Ox 99.3 F 68 17 109/56 L 95 07/16/21 16:00 07/16/21 16:00 07/16/21 16:00 07/16/21 16:00 07/16/21 16:00 no acute distress - *Routine HEENT Exam Head: Present: normocephalic Eye: Present: EOMI, PERRL ENT: Present: mucous membranes moist - *Routine Neck Exam Present: supple - *Routine Respiratory Exam Present: CTA bilaterally - *Routine Cardiovascular Exam Present: RRR - *Routine Abdominal Exam Present: soft, normoactive bowel sounds, obese. Absent: tenderness - *Routine Extremities Exam Comments: On examination of the right shoulder the dressings are clean, dry and intact; he is in an arm sling. The surgical drain is in place and draining only a small amount- the drain is removed and dressings are changed by me. There is no soakage of the dressings. The incision looks clean and healthy. No discharge or wound complications are noted. There is some ecchymosis around the surgical incision and upper arm as to be expected. Distal pulses are 2+. Distal sensation is intact to light touch throughout. He has good active wrist and finger movements. Sensation is intact over the axillary nerve distribution. Deltoid is felt to be morena well. Patient has decreased sensation over the sole of the left foot. Motor function and strength are normal. He managed to walk across the room with support. He was cleared by physical therapy for discharge. - *Routine Skin Exam Present: warm, normal turgor. Absent: erythema Comments: Right upper extremity: The surgical dressings over the right shoulder are clean, dry, and intact. No evidence of drainage or bleeding noted. There is a right arm sling in place. Upon removal of the dressings, the surgical incision appears clean, dry, and healthy. No erythema, induration, d
--- NOTE | 2021-07-22 12:55 | HMH.ANESII ---
[facility] Anesthesia Record Part II Discharge Time: 13:35 Destination: Medical Surgical Department PACU nurse assessment reviewed?: Yes Patient Condition:: Good Anesthesia Complications:: None Swallowing reflex intact?: Yes Cyanosis?: No Blood Pressure: 155/93 Pulse Rate: 82 Temperature: 97.9 F Mental Status: Alert & Oriented Pain level:: 0 Nausea and/or vomitting:: None Intake, IV Amount: 0
[2021-07-22 12:56] VITALS: BP 155/93; PULSE 82; TEMP 36.6
[2022-05-01 10:55] LABS: POC Glucose,Bedside 159 (70-110)
== END 2021-07-16 18:16 | disposition home or self-care (01) ==
LOC: 2ND 07:22
PROVIDERS: Physician Assistant Surgical; Admitting Provider Orthopaedic Surgery; PCP Internal Medicine Adolescent Medicine; Visit Provider Orthopaedic Surgery
DX: M75.121 Complete rotator cuff tear or rupture of right shoulder, not specified as traumatic (principal); M19.011 Primary osteoarthritis, right shoulder; E11.9 Type 2 diabetes mellitus without complications; I10 Essential (primary) hypertension; I25.10 Atherosclerotic heart disease of native coronary artery without angina pectoris; Z95.5 Presence of coronary angioplasty implant and graft; Z79.84 Long term (current) use of oral hypoglycemic drugs; Z20.822 Contact with and (suspected) exposure to COVID-19
CPT/HCPCS: 23472; G0378; 36415; 73020; 80048; 81001; 82962; 83036; 85007; 85025; 96374; 97161; C1713; C1776; C9803; J0330; J2405; J3370; U0003; U0005

== ENCOUNTER → 2021-07-24 09:47 | Outpatient (CLI) | payer MEDICARE, OTHER, SELFPAY ==
--- NOTE | 2021-07-24 09:53 | XR_ITS ---
PROCEDURE INFORMATION: Exam: XR Right Shoulder Exam date and time: 07/24/2021 9:53 AM Age: 70 years old Clinical indication: Pain; Shoulder; Right; Prior surgery; Surgery date: <1 month; Surgery type: Rsa; Additional info: S/P RT rsa TECHNIQUE: Imaging protocol: XR Right shoulder. Views: 2 or more views. COMPARISON: CR XR SHOULDER RT 1V 07/15/2021 1:01 PM FINDINGS: Bones/joints: Shoulder arthroplasty. No acute fracture or dislocation. No paralleling lucency about the humeral stem. IMPRESSION: Shoulder arthroplasty. No acute fracture or dislocation. No paralleling lucency about the humeral stem.
== END ==
PROVIDERS: PCP Internal Medicine Adolescent Medicine; Visit Provider Orthopaedic Surgery
DX: Z96.619 Presence of unspecified artificial shoulder joint (principal); M25.511 Pain in right shoulder
CPT/HCPCS: 73030

== ENCOUNTER → 2021-09-10 12:59 | Outpatient (CLI) | payer MEDICARE, OTHER, SELFPAY ==
--- NOTE | 2021-09-10 13:05 | XR_ITS ---
FINAL REPORT CLINICAL HISTORY: S/p Rt RSA COMPARISON: July 24, 2021 FINDINGS: RIGHT SHOULDER Three views demonstrate postoperative changes from shoulder arthroplasty. The hardware is stable. There is mild degenerative change of the AC joint. IMPRESSION: Post arthroplasty changes, stable. Reviewed, Interpreted and Dictated by Chris Younger III, MD Transcribed by Alverto Becerra Authenticated by Chris Younger III, MD on 09/10/2021 02:48:01 PM [facility]
== END ==
PROVIDERS: PCP Internal Medicine Adolescent Medicine; Visit Provider Orthopaedic Surgery
DX: M25.511 Pain in right shoulder; Z96.611 Presence of right artificial shoulder joint
CPT/HCPCS: 73030

== ENCOUNTER → 2021-10-22 10:11 | Outpatient (CLI) | payer MEDICARE, OTHER, SELFPAY ==
--- NOTE | 2021-10-22 10:23 | XR_ITS ---
FINAL REPORT CLINICAL HISTORY: shoulder pain, replacement 14 weeks ago COMPARISON: 09/10/2021 FINDINGS: RIGHT SHOULDER 3 views were obtained. A right shoulder prosthesis is present. The acromioclavicular joint is intact. No acute osseous abnormality is seen. IMPRESSION: Postoperative change with no acute bony abnormality. Reviewed, Interpreted and Dictated by Mateus Ryan MD Transcribed by Syl Whittington Authenticated by Mateus Ryan MD on 10/22/2021 01:53:54 PM [facility]
== END ==
PROVIDERS: PCP Internal Medicine Adolescent Medicine; Visit Provider Orthopaedic Surgery
DX: M25.511 Pain in right shoulder; Z96.611 Presence of right artificial shoulder joint
CPT/HCPCS: 73030

== ENCOUNTER 2021-10-31 08:00 | Outpatient (RCR) | payer MEDICARE, OTHER, SELFPAY ==
--- NOTE | 2021-08-15 16:29 | HMH.OTOPEV ---
OT Inpatient Evaluation Rehab OT Outpatient Eval Start: 08/15/21 16:19 Freq: Status: Active Protocol: Document 08/15/21 16:20 RMLIZZY (Rec: 08/15/21 16:29 [facility] [id number]) Electronically Signed By Nevaeh Gonzalez OT 08/15/21 16:20 Outpatient Therapy Subjective History Subjective History Pt is a 70 year old male who reports to therapy for initial evaluation to right shoulder. Pt is currently s/p right Reverse shoulder arthroplasty on 07/15/21 (4 weeks out). Pt is right hand dominant. Pt demonstrates with decreased PROM and strength at right shoulder upon evaluation. At this time, therapist is follwoing a rehabilitation protocol for a reverse shoulder arthroplasty. Pt just started Phase 2 of protocol. Therapist will continue to see patient twice a week in order to address right shoulder deficits. Chief Complaint Pain,Stiff,Weakness Symptom Type Ache,Dull Symptoms Relieved By Rest/Positioning Symptoms Aggravated By Physical Activity Prior Functional Limitations Reaching,Lifting,Housework, Driving,Sleeping,Recreation Activity Current Functional Limitations Reaching,Lifting,Housework, Dressing,Sleeping,Recreation Activity Symptom Description Intermittent,Activity Dependent Level of pain today (0-10) 2 Pain scale - at its best (0-10) 0 Pain scale - at its worst (0-10) 4 Shoulder/Elbow Eval Shoulder Objective Measurements Shoulder ROM Right Shoulder Abduction Passive Range of 90 degrees Motion (degrees) Shoulder Flexion Passive Range of Motion 110 degrees (degrees) Shoulder External Rotation Passive Range 20 degrees of Motion (degrees) Shoulder Internal Rotation Passive Range 0 degrees of Motion (degrees) pain with active ROM shoulder exam right standard pain with passive ROM shoulder exam right standard decreased ROM shoulder exam standard right Shoulder MMT Shoulder Abduction Strength Grade 2 Poor Shoulder Extension Strength Grade 2 Poor Shoulder Flexion Strength Grade 2 Poor Shoulder External Rotation Strength
--- NOTE | 2021-10-07 08:20 | HMH.RHREAS ---
Rehab Reassessment Rehab OP Re-assessment Start: 09/09/21 07:53 Freq: Status: Active Protocol: Document 10/07/21 08:15 KEILA (Rec: 10/07/21 08:20 RMLIZZY [id number]) Electronically Signed By Nevaeh Gonzalez OT 10/07/21 08:15 Rehab Re-assessment Subjective Subjective Today is 12 weeks! Objective Objective Notes Pt continues to be seen twice a week in order to address right shoulder deficits. Each session, pt engages in R AROM , AAROM, and strengthening exercises. Pt receives gentle therapeutic stretching to right shoulder following protocol. Modalities are provided in order to decrease pain/inflammation. Assessment Progress Assessment Progressing as Expected Assessment Notes Overall, pt is doing very well with therapy at this time. Pt demonstrates improvement with AROM and strength. Pt is currently 12 weeks out from surgery and in phase 5 ( advanced strengthening) of protocol as of today. Pt report 0/10 pain. He explains if he has pain its more soreness from exercises or stiffness. Overall, he does well with completing his HEP at home and attending all therapy sessions. He has been experiencing some cardiology issues and he will be gonig to his general operator tomorrow. Current R shoulder AROM Flex: 125 degrees Abd: 128 degrees ER: 65 degrees IR: 70 degrees Patient goals met [address]-5 LT-5 Goals Not Met See below Revised Goals LT Plan Plan Continue with OT plan of care at this time. Frequency of Therapy 2x's a week Duration of therapy 4 more weeks Time and Billing Re-Eval Time 10 Re-Eval Billing Units 1 PHYSICIAN CERTIFICATION: Kashif galeano
== END 2021-10-31 08:05 | disposition home or self-care (01) ==
LOC: OT 08:00
PROVIDERS: PCP Internal Medicine Adolescent Medicine; Visit Provider Orthopaedic Surgery
DX: M25.511 Pain in right shoulder (principal); Z96.611 Presence of right artificial shoulder joint
CPT/HCPCS: 97010; 97014; 97016; 97110; 97140; 97164; 97166; 97530; G0283

== ENCOUNTER 2021-12-23 14:28 | Outpatient (RCR) | payer MEDICARE, OTHER, SELFPAY | END 2022-01-15 15:30 | disposition home or self-care (01) | LOC: PT 14:28 | PROVIDERS: Visit Provider Internal Medicine Adolescent Medicine | DX: I25.10 Atherosclerotic heart disease of native coronary artery without angina pectoris (principal); Z95.1 Presence of aortocoronary bypass graft | CPT/HCPCS: 93798 ==

== ENCOUNTER → 2022-01-22 13:48 | Outpatient (CLI) | payer MEDICARE, OTHER, SELFPAY ==
--- NOTE | 2022-01-22 13:51 | XR_ITS ---
FINAL REPORT CLINICAL HISTORY: s/p RT shoulder surgery on 08/02/2021 COMPARISON: October 22, 2021 FINDINGS: RIGHT SHOULDER: 3 views of the right shoulder were obtained. There is no acute fracture or dislocation. There are postoperative changes from right shoulder arthroplasty. There is mild acromioclavicular joint degenerative change. There is no soft tissue abnormality. IMPRESSION: Stable appearing postoperative and degenerative changes with no acute fracture Reviewed, Interpreted and Dictated by Chris Younger III, MD Transcribed by Jyothi Thorne Authenticated and [facility]
== END ==
PROVIDERS: PCP Internal Medicine Adolescent Medicine; Visit Provider Orthopaedic Surgery
DX: M25.511 Pain in right shoulder; Z96.611 Presence of right artificial shoulder joint
CPT/HCPCS: 73030

== ENCOUNTER 2022-03-06 08:00 | Outpatient (RCR) | payer MEDICARE, OTHER, SELFPAY ==
--- NOTE | 2022-01-16 08:52 | HMH.OTOPEV ---
OT Inpatient Evaluation Rehab OT Outpatient Eval Start: 01/16/22 08:08 Freq: Status: Active Protocol: Document 01/16/22 08:08 RMLIZZY (Rec: 01/16/22 08:51 [facility] CAN[facility] CENTERLoulou [id number]) Electronically Signed By Nevaeh Gonzalez OT 01/16/22 08:08 Outpatient Therapy Subjective History Subjective History Pt is a 71 year old right hand dominant male who reports to therapy for evaluation to right navneet. Pt was seen previously following a right shoulder replacement on . However, pt had to stop therapy due having open heart surgery on 11/11/21 for a triple bypass. Pt returns back to therapy today for right shoulder due to continued stiffness since open heart surgery. Upon evaluation, pt does have decreased AROM and strength at right shoulder. Pt will continue to be seen twice a week in order to address all deficits. Chief Complaint Pain,Stiff,Weakness Symptom Type Ache,Tingling Symptoms Relieved By Rest/Positioning Symptoms Aggravated By Physical Activity,Lifting Prior Functional Limitations None Current Functional Limitations Reaching,Lifting,Housework, Sleeping,Recreation Activity Symptom Description Intermittent,Activity Dependent Level of pain today (0-10) 2 Pain scale - at its best (0-10) 0 Pain scale - at its worst (0-10) 5 Shoulder/Elbow Eval Shoulder Objective Measurements Shoulder ROM Right Shoulder Abduction Active Range of 95 degrees Motion (degrees) Shoulder Flexion Active Range of Motion 112 degrees (degrees) Query Text: Shoulder External Rotation Active Range 48 degrees of Motion (degrees) Shoulder Internal Rotation Active Range 68 degrees of Motion (degrees) Shoulder MMT Shoulder Abduction Strength Grade 3 Fair Shoulder Extension Strength Grade 3 Fair Shoulder Flexion Strength Grade 3 Fair Shoulder External Rotation Strength 3 Fair Grade Shoulder Internal Rotation Strength 3 Fair Grade Shoulder Strength Patient Testing Sitting Position Elbow Objective Measurements OT Outpatient Assessment Impairments
--- NOTE | 2022-02-17 08:56 | HMH.RHREAS ---
Rehab Reassessment Rehab OP Re-assessment Start: 02/17/22 07:53 Freq: Status: Active Protocol: Document 02/17/22 07:53 KEILA (Rec: 02/17/22 08:56 [email or web address] [id number]) Electronically Signed By Nevaeh Gonzalez OT 02/17/22 07:53 Rehab Re-assessment Subjective Subjective It is doing better. Objective Objective Notes Pt continues to be seen weekly in order to address right shoulder deficits. Each session pt engages in AROM, AAROM, and strengthening exercises. PROM manual stretching to right shoulder is provided in all planes. Modalities are provided in order to decrease pain/ inflammation at shoulder. Assessment Progress Assessment Progressing as Expected Assessment Notes Pt demonstrates improvement since beginning therapy. Pt's AROM and strength have improved. Pt explains he is able to do most things at home except heavier household tasks. Pt also reports he still has some difficulty with donning a belt. Ovearall he has minimal pain. Strength has improved but does remain slightly limited. Current R shoulder AROM and MMT Flex: 145 degrees; 3+ Abd: 142 degrees; 3+ ER: 78 degrees; 3+ IR: 78 degrees; 3+ Patient goals met ST-5 LT Goals Not Met See below Revised Goals LT-5 New goals: Flex: 150 degrees Abd: 150 degrees ER: 80 degrees IR: 80 degrees Plan Plan Continue with OT plan of care at this time. Frequency of Therapy 2x's a week Duration of therapy 4 more weeks Time and Billing Re-Eval Time 11 Re-Eval Billing Units 1 PHYSICIAN CERTIFICATION: I certify the specified therapy services for Jeffry Nguyen are required, authorized, and
== END 2022-03-06 08:05 | disposition home or self-care (01) ==
LOC: OT 08:00
PROVIDERS: PCP Internal Medicine Adolescent Medicine; Visit Provider Orthopaedic Surgery
DX: M25.511 Pain in right shoulder (principal)
CPT/HCPCS: 97010; 97014; 97110; 97140; 97164; 97166; G0283

== ENCOUNTER 2022-04-20 13:54 | Emergency (ER) | payer MEDICARE, OTHER, SELFPAY ==
--- NOTE | 2022-04-20 14:12 | XR_ITS ---
PROCEDURE INFORMATION: Exam: XR Left Hand Exam date and time: 04/20/2022 2:26 PM Age: 71 years old Clinical indication: Injury or trauma; Fall TECHNIQUE: Imaging protocol: Radiologic exam of the Left hand. Views: 3 or more views. COMPARISON: CR [id number] XR hand LT min 3V 11/27/2017 3:22 PM FINDINGS: Bones/joints: No acute fracture or dislocation. 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 Mild degenerative changes in the distal interphalangeal joints. Soft tissues: Normal. IMPRESSION: No acute fracture or dislocation.
--- NOTE | 2022-04-20 14:12 | XR_ITS ---
PROCEDURE INFORMATION: Exam: XR Left Wrist Exam date and time: 04/20/2022 2:30 PM Age: 71 years old Clinical indication: Injury or trauma; Fall TECHNIQUE: Imaging protocol: Radiologic exam of the Left wrist. Views: 3 or more views. COMPARISON: CR XR HAND LT MIN 3V 04/20/2022 2:26 PM FINDINGS: Bones/joints: No acute fracture or dislocation. Soft tissues: Normal. IMPRESSION: No acute findings.
[2022-04-20 14:49] VITALS: BP 112/71; PULSE 65; RESP 17; TEMP 37; O2SAT 97; BMI 36.1
--- NOTE | 2022-04-20 15:06 | EXP.UTC ---
Discharge Plan Disposition Patient Disposition: Home, Self-Care Condition: Good Prescriptions Prescriptions: Continued atorvastatin 40 mg tablet 40 mg PO DAILY metformin 1,000 mg tablet 1,000 mg PO BIDWMEAL lisinopril 20 mg tablet 20 mg PO DAILY aspirin 81 mg tablet,chewable 81 mg PO DAILY vitamin B complex 1 EACH tablet 1 each PO DAILY vitamin E (dl, acetate) 400 UNIT capsule 400 unit PO DAILY dapagliflozin 10 MG tablet 10 mg PO DAILY Referrals Follow up/Referrals: Toñito Calloway MD [Primary Care Provider] - See instructions Clinical Impressions Clinical Impression: Left wrist sprain Discharge ED Provider: Pierre ([facility] [facility] [place] General Stated complaint: Fall[place] injured LT Hand 04/19/22 Mode of Arrival: Ambulatory Source of Information: Patient Limitations: No Limitations Time Seen by Provider: 04/20/22 15:07 Description of Symptoms (Recalled from Triage Doc. by RN): pt comes in with c/o fall stepping off a boat dock 04/19/22. pt fell on left hand and injured wrist and hand. HEENT Symptoms (Recalled from RN notes): No Resp Symptoms (Recalled from RN notes): No Skin Symptoms (Recalled from RN notes): No MS Symptoms (Recalled from RN notes): Yes Functional Status (Recalled from RN notes): n/a History of Present Illness Provider Complaint: 71 yr old male c/o fall stepping off a boat dock 04/19/22. pt fell on left hand and injured wrist and hand. Related Data Home Medications Medication Instructions Recorded Confirmed aspirin 81 mg chewable tablet 81 mg PO DAILY Heart disease 11/20/17 04/20/22 atorvastatin 40 mg tablet 40 mg PO DAILY Cholesterol 11/20/17 04/20/22 lisinopril 20 mg tablet 20 mg PO DAILY Hypertension 11/20/17 04/20/22 metformin 1,000 mg tablet 1,000 mg PO BIDWMEAL Diabetes 11/20/17 04/20/22 dapagliflozin 10 mg tablet 10 mg PO DAILY CHF 03/27/20 04/20/22 vitamin B complex 1 each PO DAILY Supplement 07/09/21 04/20/22 vitamin E (dl, acetate) 180 mg 400 unit PO DAILY Supplement 07/09/21 04/20/22 (400 unit) capsule Allergies Allergy/AdvReac Type Severity Reaction Status Date / Time No Known Allergies Allergy Verified 04/20/22 14:52 Worker's Comp Is this a Worker's Comp case?: No PFSH PFSH 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 , 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) Smoking Status: Former smoker pack-years: 15 second hand exposure: Yes alcohol intake: never substance use type: denies use current occupational status: retired Travel in the last 8 weeks: None household members: spouse housing: house current occupational exposures/hazards: No caffeine: Yes ROS Obtained: Yes All systems reviewed & no additional complaints except as documented Constitutional Constitutional: Reports system reviewed and no additional complaints, except as documented and Denies excessive sweating Eyes Eyes: Reports system reviewed and no additional complaints, except as documented ENT Ears, Nose, Mouth, and Throat: Reports system reviewed and no additional complaints, except as documented and Denies throat swelling Cardiovascular Cardiovascular: Reports system reviewed and no additional complaints, except as documented and Denies claudication Respiratory Respiratory: Reports system reviewed and no additional complaints, except as documented and Denies non-productive cough Gastrointestinal Gastrointestingal: Reports system reviewed and no additional complaints, except as documented; Denies coffee ground emesis Musculoskeletal Musculoskeletal: Reports system reviewed and no additional complaints, except as documented, Reports arthralgias, Reports joint stiffness, Reports joint swelling and Reports limited range of motion Integumentary/Breasts Skin/Breast: Reports system reviewed and no additional complaints, except as documented and Denies change in pigmentation Neurologic Neurologic: Reports system reviewed and no additional complaints
[2022-04-20 15:21] VITALS: BP 112/71; PULSE 65; RESP 17; TEMP 37
== END 2022-04-20 15:29 | disposition home or self-care (01) ==
PROVIDERS: Emergency Provider Nurse Practitioner Family; PCP Internal Medicine Adolescent Medicine
DX: S63.502A Unspecified sprain of left wrist, initial encounter; W17.89XA Other fall from one level to another, initial encounter; Y92.62 Dock or shipyard as the place of occurrence of the external cause
CPT/HCPCS: 73110; 73130; 99212; G0463

== ENCOUNTER → 2022-04-29 08:30 | Outpatient (CLI) | payer MEDICARE, OTHER, SELFPAY ==
--- NOTE | 2022-04-29 08:35 | XR_ITS ---
FINAL REPORT CLINICAL HISTORY: s/p shoulder surgery COMPARISON: 01/22/2022 FINDINGS: Right shoulder Three views were obtained. There is no acute fracture or dislocation. There are surgical changes of reversed arthroplasty. The hardware is unremarkable. No soft tissue abnormality is identified. IMPRESSION: Stable exam. Reviewed, Interpreted and Dictated by Luna Moscoso MD Transcribed by Amanda Wolf Authenticated and [facility]
== END ==
PROVIDERS: PCP Internal Medicine Adolescent Medicine; Visit Provider Physician Assistant Surgical
DX: M25.511 Pain in right shoulder; Z96.611 Presence of right artificial shoulder joint
CPT/HCPCS: 73030

== ENCOUNTER 2023-03-30 08:00 | Outpatient (RCR) | payer MEDICARE, OTHER, SELFPAY ==
--- NOTE | 2023-02-02 08:44 | HMH.OTOPEV ---
OT Inpatient Evaluation Rehab OT Outpatient Eval Start: 02/02/23 08:35 Freq: Status: Active Protocol: Document 02/02/23 08:35 RMARSHALLoulou (Rec: 02/02/23 08:43 [facility] [id number] E-signed By Nevaeh Gonzalez, OT Outpatient Therapy Subjective History Subjective History Pt is a 72 year old male who reports to therapy for initial evaluation to left shoulder. Pt has been seen in the past for a right total shoulder replacement. Pt explains his left shoulder has become painful and stiff within the past 4-5 months. He does not recall a specific injury causing the pain to begin. At this time, no imaging has been completed at left shoulder. Pt does demonstrate with a slight decline in AROM and strength at left shoulder . Pt will continue to be seen twice a week in order to address all deficits at shoulder. Chief Complaint Pain,Stiff,Weakness Symptom Type Ache,Throb,Sharp,Dull Symptoms Relieved By Rest/Positioning Symptoms Aggravated By Physical Activity,Lifting Prior Functional Limitations None Current Functional Limitations Reaching,Lifting,Housework, Dressing,Sleeping,Recreation Activity Symptom Description Intermittent,Activity Dependent Level of pain today (0-10) 0 Pain scale - at its best (0-10) 0 Pain scale - at its worst (0-10) 8 Shoulder/Elbow Eval Shoulder Objective Measurements Shoulder ROM Left Shoulder Abduction Active Range of 125 degrees Motion (degrees) Shoulder Flexion Active Range of Motion 152 degrees (degrees) Query Text: Shoulder External Rotation Active Range 75 degrees of Motion (degrees) Shoulder Internal Rotation Active Range 60 degrees of Motion (degrees) Shoulder MMT Shoulder Abduction Strength Grade 3 Fair Shoulder Flexion Strength Grade 3 Fair Shoulder External Rotation Strength 3 Fair Grade Shoulder Internal Rotation Strength 3 Fair Grade Shoulder Strength Patient Testing Sitting Position Shoulder Special Tests impingement sign present shoulder exam left
--- NOTE | 2023-03-02 08:59 | HMH.RHREAS ---
Rehab Reassessment Rehab OP Re-assessment Start: 02/02/23 08:35 Freq: Status: Active Protocol: Document 03/02/23 08:04 KEILA (Rec: 03/02/23 08:59 KEILA [id number]) E-signed By Nevaeh Gonzalez OT Rehab Re-assessment Subjective Subjective It moves okay, it's just my pain. Objective Objective Notes Pt continues to be seen twice a week to address left shoulder deficits. Each session, pt engages in left shoulder AROM, AAROM, and strengthening exercises. Pt also receives prom manual stretching in all planes. Modalities are provided in order to decrease pain/ inflammation. Assessment Progress Assessment Progressing as Expected Assessment Notes Pt is very consistent about attending therapy sessions. Pt's AROM is now within normal limits. However, pt continues to have pain daily in left shoulder. Pt explains on a normal day his worst pain reaches a 5/10. However this past weekend he went fishing and his pain reached an 8/10. Therapist observes an audible pop when patient does actively move his arm. Pt returns back to doctor in march. Therapist recommends discussing his continued pain. Current AROM L shoulder Flex: 165 degrees Abd: 160 degrees ER: 80 degrees IR: 70 degrees Patient goals met [address], 2, 3, and 5 LT and 5 Goals Not Met See below Revised Goals ST LT, 2, and 4 Plan Plan Continue with OT plan of care at this time. Frequency of Therapy 2x's a week Duration of therapy 4 more weeks Time and Billing Re-Eval Time 12 Re-Eval Billing Units 1 PHYSICIAN CERTIFICATION: I certify the specified therapy services for Jeffry Nguyen
--- NOTE | 2023-03-30 08:37 | HMH.RHREAS ---
Rehab Reassessment Rehab OP Re-assessment Start: 02/02/23 08:35 Freq: Status: Active Protocol: Document 03/30/23 08:07 KEILA (Rec: 03/30/23 08:37 KEILA [id number]) E-signed By Nevaeh Gonzalez OT Rehab Re-assessment Subjective Subjective The pain is still there. Objective Objective Notes Pt continues to be seen twice a week to address left shoulder deficits. Each session, pt engages in left shoulder AROM, AAROM, and strengthening exercises. Pt also receives prom manual stretching in all planes. Modalities are provided in order to decrease pain/ inflammation. Assessment Progress Assessment Progressing as Expected Assessment Notes Pt is very consistent about attending therapy sessions. Pt's AROM continues to remain within normal limits. It has improved some since last re- assessment. It appears AROM is not the main problem; pt's continued pain is his biggest complaint. During a normal day his worst pain reaches a 4 /10. However, when he reaches arm out to side suddenly or fishes his pain will reach an 8/10. Pt returns to the doctor today and plans to discuss his continued pain. Current AROM L shoulder Flex: 172 degrees Abd: 165 degrees ER: 86 degrees IR: 70 degrees Patient goals met [address], 2, 3, and 5 LT and 5 Goals Not Met See below Revised Goals ST LT, 2, and 4 Plan Plan Continue with OT plan of care at this time. Frequency of Therapy 2x's a week Duration of therapy 4 more weeks Time and Billing Re-Eval Time 11 Re-Eval Billing Units 1 PHYSICIAN CERTIFICATION: I certify the specified therapy services for Jeffry Nguyen are required, authorized, and reviewed every 30 days.
== END 2023-03-30 08:05 | disposition home or self-care (01) ==
LOC: OT 08:00
PROVIDERS: PCP Internal Medicine Adolescent Medicine; Visit Provider Internal Medicine Adolescent Medicine
DX: M25.512 Pain in left shoulder (principal); M79.601 Pain in right arm
CPT/HCPCS: 97010; 97014; 97110; 97140; 97164; 97166; G0283

== ENCOUNTER 2023-05-01 15:51 | Emergency (ER) | payer MEDICARE, OTHER, SELFPAY ==
[2023-05-01] VITALS (7 sets, daily range): BP systolic 115–136; BP diastolic 66–78; PULSE 69–75; RESP 17–20; TEMP 36.7; O2SAT 93–96; BMI 35.6
--- NOTE | 2023-05-01 16:44 | HMH.EDGENADL ---
Discharge Plan Disposition Patient Disposition: Home, Self-Care Chief Complaint: Eye Problems Prescriptions Prescriptions: No Action atorvastatin 40 mg tablet 40 mg PO DAILY metformin 1,000 mg tablet 1,000 mg PO BIDWMEAL lisinopril 20 mg tablet 20 mg PO DAILY aspirin 81 mg tablet,chewable 81 mg PO DAILY vitamin B complex 1 EACH tablet 1 each PO DAILY vitamin E (dl, acetate) 400 UNIT capsule 400 unit PO DAILY dapagliflozin propanediol 10 MG tablet 10 mg PO DAILY Referrals Follow up/Referrals: Toñito Calloway MD [Primary Care Provider] - See instructions Activity Restrictions/Add. Instructions Additional Instructions/Restrictions: Call your family doctor to establish care for this visit to the emergency department and schedule follow-up within 48 hours to ensure improvement. If you have any worsening of your condition or any other concerning signs or symptoms, return to the emergency department or your primary care doctor for further evaluation. Clinical Impressions Clinical Impression: Abrasion, corneal Discharge ED Provider: Trenton Bashir General Adult HPI General Chief complaint: Eye Problems Stated complaint: FO in left eye Time Seen by Provider: 05/01/23 16:04 Mode of Arrival: Ambulatory Source of Information: Patient Limitations: No Limitations Description of Symptoms (Recalled from ER Triage Doc. by RN): Patient states about 1 hour ago he had some corrosive material from a battery splash into his left eye and it now feels like something is stuck in his eye. States he was seen in the [facility] earlier and was told to go to the eye doctor. Upon arrival to the eye doctor's office they called him and told him to go to the er for evaluation because they didn't have the materials to take care of him. History of Present Illness HPI narrative: 72-year-old male with history of hypertension, hyperlipidemia, CABG currently on aspirin and Plavix who is presenting with left eye pain. Patient states that he was cleaning a battery off with a wire brush prior to arrival. Got some of the substance in his eye. Went to the urgent care, told to go to the eye doctor. Eye doctor told patient to come to the ER because they did not have the ability to take care of them. Patient presents to the ER. Denies blurry vision, double vision, headache, blood or drainage from the eye, any previous injury to this eye, or any other concerns. Related Data Home Medications Medication Instructions Recorded Confirmed aspirin 81 mg chewable tablet 81 mg PO DAILY Heart disease 11/20/17 04/29/22 atorvastatin 40 mg tablet 40 mg PO DAILY Cholesterol 11/20/17 04/29/22 lisinopril 20 mg tablet 20 mg PO DAILY Hypertension 11/20/17 04/29/22 metformin 1,000 mg tablet 1,000 mg PO BIDWMEAL Diabetes 11/20/17 04/29/22 dapagliflozin propanediol 10 mg 10 mg PO DAILY CHF 03/27/20 04/29/22 tablet vitamin B complex 1 each PO DAILY Supplement 07/09/21 04/29/22 vitamin E (dl, acetate) 180 mg 400 unit PO DAILY Supplement 07/09/21 04/29/22 (400 unit) capsule Allergies Allergy/AdvReac Type Severity Reaction Status Date / Time No Known Allergies Allergy Verified 04/29/22 09:11 [facility] Disclaimer: The information contained in this section may have been updated after the patient was seen, as this information can be updated by other users. 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 Smoking Status: Never smoker second hand exposure: Yes alcohol intake: never substance use type: denies use current occupational status: retired Travel in the last 8 weeks: None household members: spouse housing: house current occupational exposures/hazards: No caffeine: Yes ROS Obtained: Yes All systems reviewed & no additional complaints except as documented Physical Exam General General appearance: alert and in no apparent distress Head Head exam: atraumatic and normocepha
--- NOTE | 2023-05-01 16:51 | PC.NURSE ---
BILATERAL 20/20 RIGHT 20/20 LEFT 20/40
--- NOTE | 2023-05-01 17:16 | PC.NURSE ---
Rounded on patient. No needs at this time.
== END 2023-05-01 18:39 | disposition home or self-care (01) ==
PROVIDERS: Emergency Provider Emergency Medicine; PCP Internal Medicine Adolescent Medicine
DX: T54.2X1A Toxic effect of corrosive acids and acid-like substances, accidental (unintentional), initial encounter (principal); S05.02XA Injury of conjunctiva and corneal abrasion without foreign body, left eye, initial encounter; I10 Essential (primary) hypertension; E78.5 Hyperlipidemia, unspecified; Z79.02 Long term (current) use of antithrombotics/antiplatelets; Z79.82 Long term (current) use of aspirin; Z23 Encounter for immunization; X58.XXXA Exposure to other specified factors, initial encounter
CPT/HCPCS: 90715; 96372; 99283

== ENCOUNTER 2023-05-23 16:51 | Emergency (ER) | payer MEDICARE, OTHER, SELFPAY ==
[2023-05-23 16:53] VITALS: BP 180/92; PULSE 62; RESP 20; TEMP 36.8; O2SAT 95; BMI 34.0
--- NOTE | 2023-05-23 17:04 | ECG_ITS ---
APPROVED REPORT Exam: Resting ECG HR:94 bpm ECG Measurements Heart Rate 94 AXES MD 187 P 27 QRSd 113 QRS 77 QT 339 T 30 QTc 390 Conclusion SINUS RHYTHM POSSIBLE INFERIOR MYOCARDIAL INFARCTION , PROBABLY OLD [30 ms Q WAVE IN II/aVF] BORDERLINE ECG UNCONFIRMED REPORT Electronically signed by : Toñito Calloway MD 05/25/2023 08:33:32
--- NOTE | 2023-05-23 17:13 | PC.NURSE ---
Dr. Ashby at [facility] for pt eval
--- NOTE | 2023-05-23 17:17 | CT_ITS ---
PROCEDURE INFORMATION: Exam: CT Cervical Spine Without Contrast Exam date and time: 05/23/2023 5:58 PM Age: 72 years old Clinical indication: Injury or trauma; Fall; Blunt trauma; Additional info: Trauma, critical injury suspected TECHNIQUE: Imaging protocol: Computed tomography of the cervical spine without contrast. Radiation optimization: All CT scans at this facility use at least one of these dose optimization techniques: automated exposure control; mA and/or kV adjustment per patient size (includes targeted exams where dose is matched to clinical indication); or iterative reconstruction. REPORTING DATA: Count of CT and Cardiac NM exams in prior 12 months: This patient has received 0 known CTs and 0 known cardiac nuclear medicine studies in the 12 months prior to the current study. COMPARISON: CT HEAD/BRAIN WO CON 05/23/2023 5:55 PM FINDINGS: Bones/joints: No cervical spine fracture or acute listhesis. Status post C5-C6 ACDF. Hardware is intact and in good position. Moderate degenerative change between the odontoid and anterior arch of C1. Mild left-sided and moderate right-sided multilevel facet arthropathy. Moderate right C3-C4 foraminal stenosis. Posterior bone spurring at C5-C6 is causing moderate central canal and moderate bilateral neural foraminal stenosis. Status post right total hip arthroplasty. Status post sternotomy. Lungs: Lung apices are normal. Soft tissues: Unremarkable. IMPRESSION: No cervical spine fracture or acute listhesis.
--- NOTE | 2023-05-23 17:17 | CT_ITS ---
PROCEDURE INFORMATION: Exam: CT Thoracic Spine Without Contrast Exam date and time: 05/23/2023 6:02 PM Age: 72 years old Clinical indication: Injury or trauma; Fall; Work related; Blunt trauma (contusions or hematomas); Additional info: Trauma, critical injury suspected TECHNIQUE: Imaging protocol: Computed tomography of the thoracic spine without contrast. Radiation optimization: All CT scans at this facility use at least one of these dose optimization techniques: automated exposure control; mA and/or kV adjustment per patient size (includes targeted exams where dose is matched to clinical indication); or iterative reconstruction. REPORTING DATA: Count of CT and Cardiac NM exams in prior 12 months: This patient has received 0 known CTs and 0 known cardiac nuclear medicine studies in the 12 months prior to the current study. COMPARISON: CT CERVICAL SPINE WO CON 05/23/2023 5:58 PM FINDINGS: Bones/joints: Nondisplaced right posterior 10th and 11th rib fractures. No evidence of a thoracic spine fracture. Complete osseous fusion from T10 through T12. Mild multilevel degenerative disc disease of the thoracic spine. No significant spinal canal or neural foraminal stenosis. Status post sternotomy. Status post right total shoulder arthroplasty. Soft tissues: Unremarkable. IMPRESSION: 1. Nondisplaced right posterior 10th and 11th rib fractures. 2. No evidence of a thoracic spine fracture.
--- NOTE | 2023-05-23 17:17 | CT_ITS ---
PROCEDURE INFORMATION: Exam: CTA Chest With Contrast Exam date and time: 05/23/2023 6:23 PM Age: 72 years old Clinical indication: Injury or trauma; Fall; Blunt trauma (contusions or hematomas); Additional info: Trauma, critical injury suspected TECHNIQUE: Imaging protocol: Computed tomographic angiography of the chest with contrast. Exam focused on the arteries. 3D rendering (Not supervised by radiologist): MIP and/or 3D reconstructed images were created by the technologist. Radiation optimization: All CT scans at this facility use at least one of these dose optimization techniques: automated exposure control; mA and/or kV adjustment per patient size (includes targeted exams where dose is matched to clinical indication); or iterative reconstruction. Contrast material: ISOVUE; Contrast volume: 100 ml; Contrast route: INTRAVENOUS (IV); REPORTING DATA: Count of CT and Cardiac NM exams in prior 12 months: This patient has received 0 known CTs and 0 known cardiac nuclear medicine studies in the 12 months prior to the current study. COMPARISON: CR XR CHEST 2V 08/17/2019 12:57 PM FINDINGS: Pulmonary arteries: Dilated main pulmonary artery could be secondary to pulmonary hypertension. Aorta: Mild thoracic aortic atherosclerotic disease without acute injury, aneurysm, or dissection. Lungs: Mild scattered atelectasis throughout the lungs. Pleural spaces: Unremarkable. No pneumothorax. No pleural effusion. Heart: Unremarkable. No cardiomegaly. No pericardial effusion. Coronary arteries: Surgical changes from CABG. Moderate calcified plaque in the [place] coronary arteries. Lymph nodes: Unremarkable. No enlarged lymph nodes. Bones/joints: Mildly displaced right anterior 5th rib fracture. Nondisplaced right anterior 6th rib fracture. Nondisplaced right posterior 10th and 11th rib fractures. Mildly displaced right posterior 12th rib fracture. Status post sternotomy. Status post right total shoulder arthroplasty. Complete osseous fusion of the T10 through T12 vertebral bodies. Soft tissues: Unremarkable. IMPRESSION: 1. Mildly displaced right anterior 5th rib fracture. Nondisplaced right anterior 6th rib fracture. Nondisplaced right posterior 10th and 11th rib fractures. Mildly displaced right posterior 12th rib fracture. 2. No evidence of a vascular injury. 3. Status post CABG. 4. Dilated main pulmonary artery could be secondary to pulmonary hypertension.
--- NOTE | 2023-05-23 17:17 | CT_ITS ---
PROCEDURE INFORMATION: Exam: CT Lumbar Spine Without Contrast Exam date and time: 05/23/2023 6:11 PM Age: 72 years old Clinical indication: Injury or trauma; Fall; Blunt trauma (contusions or hematomas); Additional info: Trauma, critical injury suspected TECHNIQUE: Imaging protocol: Computed tomography of the lumbar spine without contrast. Radiation optimization: All CT scans at this facility use at least one of these dose optimization techniques: automated exposure control; mA and/or kV adjustment per patient size (includes targeted exams where dose is matched to clinical indication); or iterative reconstruction. REPORTING DATA: Count of CT and Cardiac NM exams in prior 12 months: This patient has received 0 known CTs and 0 known cardiac nuclear medicine studies in the 12 months prior to the current study. COMPARISON: CT THORACIC SPINE WO CON 05/23/2023 6:02 PM FINDINGS: Bones/joints: Nondisplaced right posterior 10th and 11th rib fractures. Mildly displaced right posterior 12th rib fracture. Nondisplaced right L1 through L5 transverse process fractures. No vertebral body compression fracture. Mild multilevel degenerative disc disease. Moderate L4-L5 and L5-S1 facet arthropathy. Grade 1 anterolisthesis of L4 over L5. Soft tissues: Unremarkable. IMPRESSION: 1. Nondisplaced right posterior 10th and 11th rib fractures. Mildly displaced right posterior 12th rib fracture. 2. Nondisplaced right L1 through L5 transverse process fractures. 3. No vertebral body compression fracture.
--- NOTE | 2023-05-23 17:17 | CT_ITS ---
PROCEDURE INFORMATION: Exam: CT Pelvis Without Contrast; Skeletal Exam date and time: 05/23/2023 6:16 PM Age: 72 years old Clinical indication: Pain; Additional info: Trauma, critical injury suspected TECHNIQUE: Imaging protocol: Computed tomography of the pelvis without contrast. Exam focused on the skeleton. Radiation optimization: All CT scans at this facility use at least one of these dose optimization techniques: automated exposure control; mA and/or kV adjustment per patient size (includes targeted exams where dose is matched to clinical indication); or iterative reconstruction. REPORTING DATA: Count of CT and Cardiac NM exams in prior 12 months: This patient has received 0 known CTs and 0 known cardiac nuclear medicine studies in the 12 months prior to the current study. COMPARISON: 1. CT LUMBAR SPINE WO CON 05/23/2023 6:11 PM 2. CR XR HIP LT 2-3V W/PELVIS 05/23/2023 6:[address] ANGIO ABDOMEN PELVIS 05/23/2023 6:23 PM FINDINGS: Reproductive: Markedly enlarged prostate. Vasculature: Moderate atherosclerotic disease without visible aneurysm. Bones/joints: Nondisplaced right L3 and possibly L4 and L5 transverse process fractures. No other fracture. Osteopenia. Mild degenerative change of the bilateral hips and sacroiliac joints. [id number] bilateral L4-L5 and L5-S1 facet arthropathy. Grade 1 anterolisthesis of L4 over L5. Soft tissues: Unremarkable. IMPRESSION: 1. Nondisplaced right L3 and possibly L4 and L5 transverse process fractures. 2. No other fracture.
--- NOTE | 2023-05-23 17:17 | CT_ITS ---
PROCEDURE INFORMATION: Exam: CTA Abdomen and Pelvis With Contrast Exam date and time: 05/23/2023 6:23 PM Age: 72 years old Clinical indication: Injury or trauma; Fall; Blunt trauma; Lower abdominal or back area; Bilateral; Injury date: Today; Additional info: Trauma, critical injury suspected TECHNIQUE: Imaging protocol: Computed tomographic angiography of the abdomen and pelvis with contrast. Exam focused on the arteries. 3D rendering (Not supervised by radiologist): MIP and/or 3D reconstructed images were created by the technologist. Radiation optimization: All CT scans at this facility use at least one of these dose optimization techniques: automated exposure control; mA and/or kV adjustment per patient size (includes targeted exams where dose is matched to clinical indication); or iterative reconstruction. Contrast material: ISOVUE; Contrast volume: 100 ml; Contrast route: INTRAVENOUS (IV); REPORTING DATA: Count of CT and Cardiac NM exams in prior 12 months: This patient has received 0 known CTs and 0 known cardiac nuclear medicine studies in the 12 months prior to the current study. COMPARISON: CT LUMBAR SPINE WO CON 05/23/2023 6:11 PM FINDINGS: Lungs: Moderate atelectasis at the lung bases. Aorta: Moderate abdominal aortic atherosclerotic disease. No aneurysm, dissection, or acute injury. Celiac trunk and mesenteric arteries: Mild proximal celiac artery atherosclerotic plaque without aneurysm or stenosis. Moderate superior mesenteric artery atherosclerotic plaque without aneurysm or significant stenosis. Renal arteries: Mild bilateral proximal renal artery atherosclerotic plaque without aneurysm or significant stenosis. Right iliac arteries: Mild atherosclerotic plaque in the right common iliac artery without aneurysm or stenosis. No significant plaque in the right external iliac artery. Right femoral/popliteal arteries: Mild atherosclerotic plaque in the right common femoral artery without aneurysm or stenosis. Left iliac arteries: Mild atherosclerotic plaque in the left common iliac artery without aneurysm or stenosis. No significant plaque in the left external iliac artery. Left femoral/popliteal arteries: Mild atherosclerotic plaque in the left common femoral artery without aneurysm or stenosis. Liver: No mass. Gallbladder and bile ducts: Status post cholecystectomy. No significant biliary ductal dilitation. Pancreas: Unremarkable. No mass. No ductal dilation. Spleen: Unremarkable. No splenomegaly. Adrenal glands: Unremarkable. No mass. Kidneys and ureters: Subcentimeter low-density cortical lesion in the lower pole of the right kidney is too small to characterize. No other renal lesions. No hydronephrosis. Stomach and bowel: Unremarkable. No obstruction. No mucosal thickening. Appendix: Normal appendix is seen. Intraperitoneal space: Unremarkable. No free air. No significant fluid collection. Lymph nodes: Unremarkable. No enlarged lymph nodes. Urinary bladder: Unremarkable. No mass. Reproductive: Markedly enlarged prostate. Bones/joints: Complete fusion from T10 through T12. Lumbar spine facet arthropathy with grade 1 anterolisthesis of L4 over L5. Mild degenerative change of the bilateral hips. No evidence of a fracture. Soft tissues: 3.5 x 2.3 x 4.2 cm lobulated soft tissue density structure with a punctate calcification in the anterior peritoneum at the umbilicus. IMPRESSION: 1. No acute findings. 2. 3.5 x 2.3 x 4.2 cm lobulated soft tissue density structure with a punctate calcification in the anterior peritoneum at the umbilicus. This may represent the sequela of a prior umbilical hernia repair but if there is no history of surgery a tumor deposit the or desmoid tumor should be consid
--- NOTE | 2023-05-23 17:17 | CT_ITS ---
PROCEDURE INFORMATION: Exam: CT Head Without Contrast Exam date and time: 05/23/2023 5:55 PM Age: 72 years old Clinical indication: Injury or trauma; Fall; Blunt trauma (contusions or hematomas); Consciousness not specified; Injury date: Today; Injury details: PT fell off a horse; Additional info: Trauma, critical injury suspected TECHNIQUE: Imaging protocol: Computed tomography of the head without contrast. Radiation optimization: All CT scans at this facility use at least one of these dose optimization techniques: automated exposure control; mA and/or kV adjustment per patient size (includes targeted exams where dose is matched to clinical indication); or iterative reconstruction. REPORTING DATA: Count of CT and Cardiac NM exams in prior 12 months: This patient has received 0 known CTs and 0 known cardiac nuclear medicine studies in the 12 months prior to the current study. 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 Minimal periventricular white matter lucency is unchanged and is likely the sequela of chronic small vessel ischemic disease. No hemorrhage or acute edema. No mass effect or midline shift. Mild diffuse atrophy. Cerebral ventricles: No ventriculomegaly. Paranasal sinuses: Visualized sinuses are unremarkable. No fluid levels. Mastoid air cells: Visualized mastoid air cells are well aerated. Bones/joints: Unremarkable. No acute fracture. Soft tissues: Unremarkable. IMPRESSION: No acute intracranial findings.
--- NOTE | 2023-05-23 17:17 | XR_ITS ---
PROCEDURE INFORMATION: Exam: XR Left Hip Exam date and time: 05/23/2023 6:46 PM Age: 72 years old Clinical indication: Hip pain; Left hip; Additional info: L hip pain TECHNIQUE: Imaging protocol: Radiologic exam of the left hip. Views: 2 or 3 views hip with pelvis when performed. COMPARISON: CT BONY PELVIS 05/23/2023 6:16 PM FINDINGS: Bones/joints: Unremarkable. No acute fracture. Soft tissues: Unremarkable. IMPRESSION: No acute findings.
--- NOTE | 2023-05-23 17:18 | HMH.EDGENADL ---
Discharge Plan Disposition Patient Disposition: Xfer Short-Term Hosp Chief Complaint: Trauma Prescriptions Prescriptions: No Action atorvastatin 40 mg tablet 40 mg PO DAILY metformin 1,000 mg tablet 1,000 mg PO BIDWMEAL lisinopril 20 mg tablet 20 mg PO DAILY aspirin 81 mg tablet,chewable 81 mg PO DAILY vitamin B complex 1 EACH tablet 1 each PO DAILY vitamin E (dl, acetate) 400 UNIT capsule 400 unit PO DAILY dapagliflozin propanediol 10 MG tablet 10 mg PO DAILY Referrals Follow up/Referrals: Toñito Calloway MD [Primary Care Provider] - See instructions Clinical Impressions Clinical Impression: Fracture of transverse process of lumbar vertebra, Multiple rib fractures, Acute hypoxic respiratory failure, Injury while horseback riding Discharge ED Provider: Nirav Ashby General Adult HPI General Chief complaint: Trauma Stated complaint: AO05/23 fall from horse, rib and hip pain Time Seen by Provider: 05/23/23 17:10 History of Present Illness HPI narrative: Patient is a 72-year-old male past medical history of previous bypass surgery, previous right-sided shoulder surgery who presents emergency department for evaluation of traumatic injury sustained in a fall. Patient was mounting a horse when he was thrown off, knocked out. Next thing he remembers he is sitting up in a chair in a barn. He has significant right hip pain which caused him to present here for continued evaluation. Patient takes dual antiplatelet therapy. No other complaints at this time. Related Data Home Medications Medication Instructions Recorded Confirmed aspirin 81 mg chewable tablet 81 mg PO DAILY Heart disease 11/20/17 04/29/22 atorvastatin 40 mg tablet 40 mg PO DAILY Cholesterol 11/20/17 04/29/22 lisinopril 20 mg tablet 20 mg PO DAILY Hypertension 11/20/17 04/29/22 metformin 1,000 mg tablet 1,000 mg PO BIDWMEAL Diabetes 11/20/17 04/29/22 dapagliflozin propanediol 10 mg 10 mg PO DAILY CHF 03/27/20 04/29/22 tablet vitamin B complex 1 each PO DAILY Supplement 07/09/21 04/29/22 vitamin E (dl, acetate) 180 mg 400 unit PO DAILY Supplement 07/09/21 04/29/22 (400 unit) capsule Allergies Allergy/AdvReac Type Severity Reaction Status Date / Time No Known Allergies Allergy Verified 04/29/22 09:11 PFSH PFSH Disclaimer: The information contained in this section may have been updated after the patient was seen, as this information can be updated by other users. 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 Smoking Status: Current every day smoker second hand exposure: Yes alcohol intake: never substance use type: denies use current occupational status: retired Travel in the last 8 weeks: None household members: spouse housing: house current occupational exposures/hazards: No caffeine: Yes ROS Obtained: Yes Systems reviewed as appropriate & no additional complaints except as documented Physical Exam General General appearance: alert and in no apparent distress Head Head exam: atraumatic and normocephalic Eye Eye exam: Present PERRL and EOMI ENT ENT exam: Present mucous membranes moist Neck Neck exam: Present normal inspection; Absent tenderness Chest Chest inspection: Present normal inspection and symmetric chest wall rise Respiratory Respiratory exam: Present normal lung sounds bilaterally; Absent respiratory distress Cardiovascular Cardiovascular exam: Present regular rate and normal rhythm Abdominal Exam Abdominal exam: Present soft; Absent tenderness Extremities Exam Extremities exam: Present normal inspection and other (Tenderness over the right posterior hip, extensor mechanism intact right lower extremity, palpable dorsal pedal pulse bilaterally. Extensor mechanism intact on the left with significant contralateral hip pain) Back Exam Back exam: Present other (No midline tenderness) Neurological Exam Neurological exam: P
--- NOTE | 2023-05-23 17:27 | PC.NURSE ---
notified rad staff dr. loja does not want to wait on labs for ct scans
[2023-05-23 17:28] LABS: Chloride 102 mmol/L (98-107); Potassium 4.2 mmoL/L (3.5-5.1); Sodium 138 mmol/L (136-145)
[2023-05-23 17:30] LABS: Alanine Aminotransferase 98 U/L (12-78); Aspartate Amino Transferase 138 U/L (17-59); Basophils % 0.3 % (0.1-2.0); Blood Urea Nitrogen 30 mg/dl (9-20); Eosinophils # 0.1 K/mm3 (0.0-0.4); Eosinophils % 0.8 % (0.1-12.0); Estimated Glomerular Filt Rate 83 ml/min (>60); GFR (African American) 100 ML/MIN (>60); Hematocrit 44.1 % (42.0-52.0); Hemoglobin 14.9 g/dL (14.1-18.0); Lymphocytes % 11.8 % (10-50); Mean Corpuscular HGB Conc 33.8 g/dL (31.8-35.4); Mean Corpuscular Hemoglobin 32.1 pg (27.0-31.2); Mean Corpuscular Volume 94.9 fl (80-94); Mean Platelet Volume 7.8 fl (7.4-10.4); Monocytes # 0.5 K/mm3 (0.1-1.0); Monocytes % 6.5 % (1.7-9.3); Neutrophils # 6.5 K/mm3 (1.8-7.8); Neutrophils % 80.5 % (37.0-80.0); Platelet Count 216 K/mm3 (142-424); Red Blood Count 4.64 M/mm3 (4.60-6.20); White Blood Count 8.1 K/mm3 (4.8-10.8)
[2023-05-23 17:31] VITALS: BP 122/65; PULSE 89; O2SAT 94
[2023-05-23 17:31] LABS: Albumin Level 4.7 g/dl (3.5-5.0); Albumin/Globulin Ratio 1.7 (1.1-1.8); Alkaline Phosphatase 91 U/L (38-126); Anion Gap 15.2 mEq/L (5-15); Bilirubin,Total 0.6 mg/dl (0.2-1.3); Calcium 8.9 mg/dl (8.4-10.2); Carbon Dioxide 25 mmol/L (22.0-30.0); Globulin 2.8 g/dL (1.3-3.2); Glucose 195 mg/dl (74-100); Total Protein,Serum 7.5 g/dl (6.3-8.2)
--- NOTE | 2023-05-23 17:46 | PC.NURSE ---
Pt gone to RAD via stretcher
--- NOTE | 2023-05-23 18:33 | PC.NURSE ---
Pt returned from RAD
--- NOTE | 2023-05-23 18:33 | PC.NURSE ---
Pt back from CT
[2023-05-23 18:39] VITALS: BP 114/62; PULSE 80; O2SAT 92
--- NOTE | 2023-05-23 19:51 | PC.NURSE ---
rounded on pt no needs at this time
--- NOTE | 2023-05-23 19:52 | PC.NURSE ---
contacted [facility] for transfer, will be calling back. Contacted radiology to [facility] as well.
--- NOTE | 2023-05-23 21:15 | PC.NURSE ---
Contacted to check on status of transfer, patient had been accepted to the ED.
[2023-05-23 22:04] VITALS: BP 125/66; PULSE 91; RESP 20; TEMP 36.6; O2SAT 96; BMI 35.6
== END 2023-05-23 22:08 | disposition short-term general hospital (02) ==
PROVIDERS: Emergency Provider Emergency Medicine; PCP Internal Medicine Adolescent Medicine
DX: J96.01 Acute respiratory failure with hypoxia (principal); S06.9X9A Unspecified intracranial injury with loss of consciousness of unspecified duration, initial encounter; S32.059A Unspecified fracture of fifth lumbar vertebra, initial encounter for closed fracture; S22.41XA Multiple fractures of ribs, right side, initial encounter for closed fracture; F17.210 Nicotine dependence, cigarettes, uncomplicated; V80.010A Animal-rider injured by fall from or being thrown from horse in noncollision accident, initial encounter; Y93.52 Activity, horseback riding
CPT/HCPCS: 70450; 71275; 72125; 72128; 72131; 72192; 73502; 74174; 80053; 85025; 93005; 96374; 96375; 99291; J0131; Q9967

== ENCOUNTER 2023-07-16 08:38 | Day surgery (SDC) | payer MEDICARE, OTHER, SELFPAY ==
[2023-07-15 12:51] VITALS: BMI 34.9
[2023-07-16 08:49] VITALS: BP 155/87; PULSE 67; RESP 18; TEMP 36.1; O2SAT 94
[2023-07-16 08:59] LABS: POC Glucose,Bedside 217 (70-110)
--- NOTE | 2023-07-16 09:06 | EXP.OP.NOTE ---
Date of procedure: 07/16/23 Pre-op Diagnosis:: 3 cm mid back lipoma Post-op Diagnosis:: 3 cm mid back sebaceous cyst Procedure performed:: Excision of 3 cm mid back sebaceous cyst Surgeon:: Julio Thakkar MD Anesthesia: local Estimated blood loss (mL): 15 Operative findings:: Lesion excised in toto Operative note:: After informed consent was obtained the patient was taken to the procedure room and maintained in the seated position. His mid back was prepped and draped in a sterile fashion. After infiltration with local anesthetic an incision was made overlying the palpable lesion. A complex sebaceous cyst was immediately encountered just deep to skin margin. The lesion was excised in toto and passed off for pathologic evaluation. Electrocautery was utilized to achieve hemostasis. Skin was reapproximated with interrupted 4-0 nylon in a mattress fashion. Dressings were applied and the patient was discharged in stable condition. Condition: stable Disposition: no change Specimens:: 3 cm mid back sebaceous cyst Complications:: No immediate
[2023-07-16 09:44] VITALS: BP 114/75; PULSE 71; RESP 18; TEMP 36.2; O2SAT 97
== END 2023-07-16 09:51 | disposition home or self-care (01) ==
PROVIDERS: PCP Internal Medicine Adolescent Medicine; Visit Provider Surgery
PROC: (CPT 11403; principal; 2023-07-16 09:15)
DX: L72.0 Epidermal cyst (principal); E11.9 Type 2 diabetes mellitus without complications
CPT/HCPCS: 11403; 82962; 88304

== ENCOUNTER 2025-06-20 06:54 | Outpatient (CLI) | payer MEDICARE, SELFPAY ==
[2025-06-20 07:38] LABS: Hematocrit 45.8 % (42.0-52.0); Hemoglobin 14.8 g/dL (14.1-18.0); Immature Granulocytes % 19.9 %; Mean Corpuscular HGB Conc 32.3 g/dL (31.8-35.4); Mean Corpuscular Hemoglobin 29.0 pg (27.0-31.2); Mean Corpuscular Volume 89.8 fl (80-94); Nucleated Red Blood Cells % 0.1 %; Platelet Count 276 K/mm3 (142-424); Red Blood Count 5.10 M/mm3 (4.60-6.20); Red Cell Distribution Width-SD 49.1 fL; White Blood Count 23.7 K/mm3 (4.8-10.8)
[2025-06-20 08:50] LABS: Total Cells Counted 100
[2025-06-20 08:51] LABS: RBC Morphology Normal
[2025-06-20 08:55] LABS: Alanine Aminotransferase 26 U/L (12-78); Albumin Level 4.7 g/dl (3.5-5.0); Albumin/Globulin Ratio 2.4 (1.1-1.8); Alkaline Phosphatase 92 U/L (38-126); Anion Gap 11.1 mEq/L (5-15); Aspartate Amino Transferase 35 U/L (17-59); Bilirubin,Total 0.7 mg/dl (0.2-1.3); Blood Urea Nitrogen 18 mg/dl (9-20); Calcium 9.6 mg/dl (8.4-10.2); Carbon Dioxide 29 mmol/L (22.0-30.0); Chloride 95 mmol/L (98-107); Creatinine,Serum 0.80 mg/dl (0.66-1.25); Estimated Glomerular Filt Rate 94 ml/min (>60); GFR (African American) 114 ML/MIN (>60); Globulin 2.0 g/dL (1.3-3.2); Glucose 266 mg/dl (74-100); Potassium 4.1 mmoL/L (3.5-5.1); Sodium 131 mmol/L (136-145); Total Protein,Serum 6.7 g/dl (6.3-8.2)
== END 2025-06-20 23:59 | disposition home or self-care (01) ==
PROVIDERS: PCP Internal Medicine Adolescent Medicine; Visit Provider Internal Medicine Adolescent Medicine
DX: D72.828 Other elevated white blood cell count (principal)
CPT/HCPCS: 36415; 80053; 85007; 85014; 85018; 85025; 85048; 85049

== ENCOUNTER 2025-06-22 10:51 | Outpatient (CLI) | payer MEDICARE, SELFPAY ==
[2025-06-22 11:17] LABS: Hematocrit 46.7 % (42.0-52.0); Hemoglobin 14.7 g/dL (14.1-18.0); Immature Granulocytes % 18.8 %; Mean Corpuscular HGB Conc 31.5 g/dL (31.8-35.4); Mean Corpuscular Hemoglobin 28.4 pg (27.0-31.2); Mean Corpuscular Volume 90.2 fl (80-94); Nucleated Red Blood Cells % 0.1 %; Platelet Count 292 K/mm3 (142-424); Red Blood Count 5.18 M/mm3 (4.60-6.20); Red Cell Distribution Width-SD 49.6 fL
[2025-06-22 11:19] LABS: White Blood Count 32.5 K/mm3 (4.8-10.8)
[2025-06-22 12:19] LABS: RBC Morphology Normal; Total Cells Counted 100
== END 2025-06-22 23:59 | disposition home or self-care (01) ==
LOC: LAB 10:52
PROVIDERS: PCP Internal Medicine Adolescent Medicine; Visit Provider Internal Medicine Medical Oncology
DX: D72.828 Other elevated white blood cell count (principal)
CPT/HCPCS: 36415; 85007; 85025

== ENCOUNTER 2025-07-06 10:07 | Outpatient (CLI) | payer MEDICARE, SELFPAY ==
--- OUTSIDE RECORDS SUMMARY | 2024-11-05 16:30 | XMS_ITS ---
Author Organization [facility] Address [address] [place] [address] Care Team Providers Care Architecture Analyst Name Role Phone Toñito Calloway Primary Care Provider [phone] Toñito Calloway Unavailable Unavailable Migration, Provider Unavailable Unavailable REASON FOR VISIT [facility] To [facility] Conversion Encounter Medications Medication SIG (Take, Route, Frequency, Duration) Notes Start Date End Date Status Rybelsus 14 MG 1 tab(s) orally once a day; Duration: 90 days 08/20/2024 Active Farxiga 10 MG Take 1 tablet by mouth once daily; Duration: 30 days Active metFORMIN HCl 1000 MG 1 tab(s) orally 2 times a day; Duration: 90 days Active Lisinopril 5 MG 1 tab(s) orally once a day; Duration: 90 days Active Vitamin B Complex QD *Please review and pick correct strength-formulatio n from [employer] options. If intended option is not shown, discontinue and re-order from Quick Search* Active Aspirin 81 MG ONE TABLET ORALLY QD *Please review and pick correct strength-formulatio n from [employer] options. If intended option is not shown, discontinue and re-order from Quick Search* Active Vitamin E 400 UNIT 1 cap(s) orally QD Active CONTOUR NEXT TEST STRIPS - ONCE DAILY; Duration: 50 DAYS Dx:E11.9 *Please review for potential replacement for e-prescription and drug interaction check* Active CONTOUR LANCETS DIRECTED ONCE A DAY *Please review for potential replacement for e-prescription and drug interaction check* Active GLUCOMETER NA USE FOR BID FSBS TESTING NA TWICE DAILY; Duration: 30 DAYS *Please review for potential replacement for e-prescription and drug interaction check* 02/16/2017 Active C-PAP MASK AND SUPPLIES DIRECTED; Duration: 30 DAYS *Please review for potential replacement for e-prescription and drug interaction check* 10/31/2024 Active Atorvastatin Calcium 40 MG 1 tab(s) orally once a day; Duration: 30 day(s) Active Metoprolol Tartrate 25 MG 1/2 tab(s) orally 2 times a day Active Klor-Con M20 20 MEQ 1 tab(s) orally daily Active Encounters Encounter Location Date Provider Diagnosis [facility] [address] [place] [address] 11/05/2024 Provider Migration Plan Of Treatment Medication Medication Name Sig Start Date Stop Date Notes Rybelsus 14 MG 1 tab(s) orally once a day; Duration: 90 days 08/20/2024 C-PAP MASK AND SUPPLIES DIRECTED; Duration: 30 DAYS 10/31/2024 *Please review for potential replacement for e-prescription and drug interaction check* Next Appt Details Provider Name:Toñito Calloway, 09/20/2025 09:30:00 AM, [address], [place], [address], Progress Notes * Jeffry ANGEL LDOB: [birth year] (74 yo M)Acc No.[id number]:11/05/2024 Patient: Jeffry MULTANI Provider: Jerome lawrence Migration :1950 A ge:74 Y S ex:Male Date:11/05/2024 Address:[address] [place], [place] [id number] Pcp:Toñito Calloway Subjective: * Chief Complaints: * 1 . [facility] Conversion Encounter. * Medical History: * Medications: T aking Klor-Con M20 20 MEQ Tablet Extended Release 1 tab(s) orally daily , Taking Metoprolol Tartrate 25 MG Tablet 1/2 tab(s) orally 2 times a day , Taking Atorvastatin Calcium 40 MG Tablet 1 tab(s) orally once a day , Taking Vitamin E 400 UNIT Capsule 1 cap(s) orally QD , Taking Aspirin 81 MG TABLET ONE TABLET ORALLY QD , Notes to Pharmacist: *Please review and pick correct strength-formulation from [employer]ianluoan options. If intended option is not shown, discontinue and re-order from Quick Search*, Taking GLUCOMETER NA PER INSURANCE COVERAGE USE FOR BID FSBS TESTING NA TWICE DAILY , Notes to Pharmacist: *Please review for potential replacement for e-prescription and drug interaction check*, Taking CONTOUR LANCETS DIRECTED ONCE A DAY , Notes to Pharmacist: *Please review for potential replacement for e-prescription and drug interaction check*, Taking CONTOUR NEXT TEST STRIPS - ONCE DAILY , Notes to Pharmacist: Dx:E11.9 *Please review for potential replacement for e-prescription and drug interaction check*, Taking Vitamin B Complex QD , Notes to Pharmacist: *Please review and pick correct strength-formulation from [employer] options. If intended option is not shown, discontinue and re-order from Quick Search*, Taking Lisinopril 5 MG Tablet 1 tab(s) orally once a day , Taking metFORMIN HCl 1000 MG Tablet 1 tab(s) orally 2 times a day , Taking Farxiga 10 MG Tablet Take 1 tablet by mouth once daily Objective: * Vitals: Assessment: Plan: * Treatment: * * Electronic signature of Thanh klein Migration on 07/06/2025 at 10:22 AM EST Sign off status: Pending * Provider: Jerome lawrence Migration Date: 0 11/05/2024 Generated for Golden smith/Ben/Jaime on: 1 09/06/2024 10:22 AM EST
--- NOTE | 2025-07-06 10:16 | ECG_ITS ---
APPROVED REPORT Exam: Resting ECG HR:72 bpm ECG Measurements Heart Rate 72 AXES OK 172 P 26 QRSd 97 QRS 106 QT 383 T 65 QTc 407 Conclusion SINUS RHYTHM WITH OCCASIONAL SUPRAVENTRICULAR PREMATURE COMPLEXES RIGHT AXIS DEVIATION [QRS AXIS > 100] ABNORMAL ECG UNCONFIRMED REPORT Electronically signed by : Toñito Calloway MD 07/08/2025 08:42:47
--- OUTSIDE RECORDS SUMMARY | 2025-07-06 10:22 | XMS_ITS | Clinical Summary ---
Author Organization [facility] ([place], [place], [place], [place], [place]) Address [address] [place] [address] Care Team Providers Care Excel Vba Developer Name Role Phone Toñito Calloway MD Primary Care Provider [phone] Jesus Manuel Berumen MD Unavailable [phone] Ben Ko APRN Unavailable [phone] Allergies No known active allergies Medications metFORMIN (GLUCOPHAGE) 1000 MG tablet Take 1 tablet (1,000 mg total) by mouth 2 (two) times daily. 11/29/2022 Active Farxiga 10 mg tablet Take 1 tablet (10 mg total) by mouth daily. 12/10/2022 Active vitamin E mixed 400 unit Cap 400 Int Units, Oral, Daily, 0 Refill(s) 11/04/2021 Active metoprolol tartrate (LOPRESSOR) 25 MG tablet Take 1 tablet (25 mg total) by mouth 2 (two) times daily. Active aspirin 81 MG EC tablet Take 1 tablet (81 mg total) by mouth daily. Active atorvastatin (LIPITOR) 40 MG tablet Take 1 tablet by mouth once daily 90 tablet 3 03/06/2025 Active lisinopriL (ZESTRIL) 5 MG tablet Take 1 tablet by mouth once daily 90 tablet 3 03/06/2025 Active clopidogreL (PLAVIX) 75 mg tablet Take 1 tablet by mouth once daily for 90 days 90 tablet 3 04/10/2025 Active Active Problems Problem Noted Date Diagnosed Date Abrasion, corneal 11/27/2023 11/27/2023 Acute hypoxic respiratory failure 11/27/2023 11/27/2023 Avulsion of skin 11/27/2023 11/27/2023 Fracture of transverse process of lumbar vertebr a 11/27/2023 11/27/2023 Closed TBI (traumatic brain injury) 11/27/2023 11/27/2023 Injury while horseback riding 11/27/2023 Laceration 11/27/2023 11/27/2023 Left wrist sprain 11/27/2023 11/27/2023 Multiple rib fractures 11/27/2023 S/p reverse total shoulder arthroplasty 11/27/1911/27/2023 Atypical chest pain 11/27/2023 11/27/2023 Animal-rider injured by fall from or being thrown from horse in noncollision accident, initial encounter 05/24/202311/02 Closed fracture of lumbar vertebra 05/24/2023 11/27/2023 Overview (11/27/2023): L1-L5 right TP fractures Closed fracture of multiple ribs of right side 1 11/27/2023 Overview (11/27/2023): Posterior 10-12 ribs Anterior 5-6 ribs Pulling about 1500 on IS History of obstructive sleep apnea 12/19/2022 Decreased testosterone level 09/11/2021 Erectile dysfunction 09/11/2021 Sleep apnea 05/29/2021 Type 2 diabetes mellitus 05/29/2021 Arteriosclerosis of coronary artery 04/15/2021 Chest pain 04/15/2021 Dyspnea on exertion 04/15/2021 Hyperlipidemia 04/15/2021 Hypertension 04/15/2021 Obesity 04/15/2021 Family History Medical History Relation Name Comments Coronary artery disease Brother Heart attack Brother Hypertension Brother Cancer Father Coronary artery disease Father Hypertension Father Diabetes Maternal Grandmother Cancer Mother Depression Mother Hypertension Paternal Grandmother Coronary artery disease Sister Relation Name Status Comments Brother Father Maternal Grandmother Mother Paternal Grandmother Sister 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 Tobacco Use Types Packs/Day Years Used Date Smoking Tobacco: Former Cigarettes Smokeless Tobacco: Never Tobacco Cessation:Counseling Given: Not Answered Alcohol Use Standard Drinks/Week Comments Not Currently 0 (1 standard drink = 0.6 oz pur e alcohol) Family and Community Support Answer Yovani e Recorded Help with Day to Day Activities Not on file 08/21/2023 Feeling Lonely or Isolated Not on file 08/21 Educational Attainment Answer Date Geo rded Speak language other than Guatemalan at home Not on file 08/21/2023 Want help with school or training Not on file 08/21/2023 Substance Use Answer Date Recorded Used prescription meds for non-medical reasons N ot on file 08/21/2023 Used illegal drugs past 12 months Not on file 08/21/2023 Sex and Gender Information Value Date Recorded Sex Assigned at Not on file Legal Sex Male 1:33 PM CDT Gender Identity Not on file Sexual Orientation Not on file Last Filed Vital Signs Vital Sign Reading Time Taken Comments Blood Pressure 130/60 02/21/2025 8:25 AM EDT Pulse 65 02/21/2025 8:25 AM EDT Temperature - - Respiratory Rate - - Oxygen Saturation - - Inhaled Oxygen Concentration - - Weight 105.3 kg (232 lb 3.2 oz) 02/21/2025 8:25 AM EDT Height 172.7 cm (5' 8 ) 02/21/2025 8:25 AM EDT Body Mass Index 35.31 02/21/2025 8:25 AM EDT Plan of Treatment Health Maintenance Due Date Last Done Comments Medicare Initial AWV G0438 CT Colonography 1950 Colonoscopy 1950 Colorectal Cancer Screening 1950 Diabetic Kidney Health Evalu ation (KED) 1950 FOBT/FIT 1950 Fit-DNA (Cologuard) 1950 Sigmoidoscopy 1950 Diabetic Eye Exam 1960 Depression Screening (12+) 1962 Hepatitis C Screening 1968 DTAP/TDAP/TD VACCINES (1 - Tdap) 1969 Respiratory Syncytial Virus (RSV) Adult or (1 - Risk 60-74 years 1-dose series) 2010 Abdominal Aortic Aneurysm (A AA) Screen 2015 Shingles Vaccine (Zoster) (2 of 2) 04/16/20172016 Hemoglobin A1C 12/19/2022 Falls Risk Screening 08/03/2024 COVID-19 VACCINE (4 - 2024-2 6 season) 2025 07/10/2021, 09/05/2020, 08/08/2020 Influenza Vaccine (#1) 2025 2, 06/03/2021, 06/04/2020, Additional history exists Tobacco Cessation Counseling and Screening (12+) 02/21/2026 02/21/2025 Pneumococcal 50+ years Completed 10/20/2018, 2016 [place] [address] MEDICARE PART A B CIGNA [facility] SUPP GENERIC [facility] SUPP Care Teams Excel Vba Developer Relationship Specialty Start Date End Date Toñito Calloway MD [address] [place] [address] PCP - General Adolescent Medicine 11/11/22 Jesus Manuel Berumen MD [address] [facility] [address] [place] [address] Referring Physician Cardiology 11/11/22 Ben Ko APRN [address] [facility] [address] [place], [place] [id number] Nurse Practitioner Cardiology 11/27/23
--- OUTSIDE RECORDS SUMMARY | 2025-07-06 10:22 | XMS_ITS | Referral Summary ---
Author Organization [facility] ([place], [place], [place], [place], [place]) Address [address] [place] [address] Care Team Providers Care Ict Support And Test Engineers Name Role Phone Toñito Calloway MD Primary Care Provider + [phone] Jesus Manuel Berumen MD Unavailable [phone] Ben Ko APRN Unavailable [phone] Allergies No known active allergies Medications metFORMIN [...] 04/15/2021 Hyperlipidemia 04/15/2021 Hypertension 04/15/2021 Obesity 04/15/2021 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 Tobacco Use Types Packs/Day Years [...] Date Geo rded Speak language other than Turkish at home Not on file 08/21/2023 Want [...] 02/21/2025 8:25 AM EDT Plan of Treatment [place] [address] MEDICARE PART A B CIGNA [facility] [place] [address] GENERIC MCR SUPP Care Teams Ict Support And Test Engineers Relationship Specialty Start Date End Date Toñito Calloway MD [address] [place] [address] PCP - General Adolescent Medicine 11/11/22 Jesus Manuel Berumen MD [address] [facility] [address] [address] Referring Physician Cardiology 11/11/22 Ben Ko APRN [address] [facility] [address] [address] Nurse Practitioner Cardiology 11/27/23
--- OUTSIDE RECORDS SUMMARY | 2025-07-06 10:23 | XMS_ITS | Clinical Summary ---
Author Organization [facility] Address [address] [place] [address] Care Team Providers Care Strategic Advisor Name Role Phone Toñito Calloway MD Primary Care Provider [phone] Allergies No known active allergies Medications atorvastatin (Lipitor) 40 MG tablet Take 1 tablet (40 mg) by mouth Daily. 01/06/2023 Active clopidogrel (Plavix) 75 MG tablet Take 1 tablet (75 mg) by mouth Daily. 01/06/2023 Active dapagliflozin (Farxiga) 10 MG tablet Take 1 tablet (10 mg) by mouth 1 (one) time each day. 12/10/2022 Active metFORMIN (Glucophage) 1000 MG tablet Take 1 tablet (1,000 mg) by mouth twice a day. 07/03/2015 Active metoprolol tartrate (Lopressor) 25 MG tablet Take 0.5 tablets (12.5 mg) by mouth 2 (two) times a day. 05/13/2023 Active Vitamin E 180 MG (400 UNIT) capsule Take 180 mg by mouth 1 (one) time each day at the same time. Active aspirin 81 MG EC tablet Take 1 tablet (81 mg) by mouth 1 (one) time each day. Active lisinopril 5 MG tablet Take 1 tablet (5 mg) by mouth 1 (one) time each day. Active b complex vitamins capsule Take 1 capsule by mouth 1 (one) time each day. Active methocarbamol (Robaxin) 500 MG tablet Take 2 tablets (1,000 mg) by mouth 4 (four) times a day for 10 days. 80 tablet 05/26/2023 Active Active Problems Problem Noted Date Diagnosed Date Closed fracture of lumbar vertebra 05/24/2023 Overview (05/24/2023): L1-L5 right TP fractures Closed fracture of multiple ribs of right side 1 Overview (05/24/2023): Posterior 10-12 ribs Anterior 5-6 ribs Pulling about 1500 on IS Fall from horse 05/24/2023 Fall from horse, initial encounter 05/24/2023 Family History Medical History Relation Name Comments Diabetes Other 1 Heart attack Other 2 Relation Name Status Comments Other 1 Other 2 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 Tobacco Use Types Packs/Day Years Used Date Smoking Tobacco: Never Sex and Gender Information Value Date Recorded Sex Assigned at Not on file Legal Sex Male 7:46 PM EDT Gender Identity Not on file Sexual Orientation Not on file Last Filed Vital Signs Vital Sign Reading Time Taken Comments Blood Pressure 147/82 05/26/2023 12:45 PM EDT Pulse 66 05/26/2023 12:45 PM EDT Temperature 36.3 C (97.4 F) 05/26/2023 12:45 PM EDT Respiratory Rate 18 05/26/2023 12:45 PM EDT Oxygen Saturation 93% 05/26/2023 12:45 PM EDT Inhaled Oxygen Concentration - - Weight 106 kg (233 lb 15.2 oz) 05/24/2023 12:01 PM EDT Height 172.7 cm (5' 8 ) 05/24/2023 12:01 PM EDT Body Mass Index 35.57 05/24/2023 12:01 PM EDT Plan of Treatment Health Maintenance Due Date Last Done Comments [facility]-Depression Screening 1950 [facility]Medicare Annual Wellness (AWV) 1950 [facility]-Infant/Child/Adol SDOH Screenings 1950 [facility]-Obesity Intervention 1956 [facility]- SDOH Screenings 1968 [facility]-Adult SDOH Screenings 1968 CT Colonography 1995 Colonoscopy 1995 FIT-DNA 1995 FIT 1995 FOBT 1995 Sigmoidoscopy 1995 [facility]-Colorectal Cancer Screening 1995 [facility]-Zoster Vaccines (1 of 2) 2000 [id number]-09 Vaccine ( season) 2025 [facility]-Influenza Vaccine (#1) 04/03/202506/02, 06/03/2021, 06/04/2020, Additional history exists [facility]-RSV Vaccine: 60+ Years or (1 - 1-dose 75+ series) 2025 [facility]-DTaP,Tdap,and Td Vaccines (2 - Td or Tdap) 05/12/2026 05/12/2016 [facility]-Pneumococcal Vaccine: 50+ Years Completed 10/20/2018, 09/04/2016 [facility]-Hepatitis C Screening Completed 05/24/2023 [facility]-Diabetes: Hemoglobin A1C Discontinued 05/25/2023 HPV Vaccines Aged Out No longer eligi ble based on patient's age to complete this topic [facility]-HIB Vaccines Aged Out No longer e ligible based on patient's age to complete this topic [facility]-Hepatitis A Vaccines Aged Out No longer eligible based on patient's age to complete this topic [facility]-IPV Vaccines Aged Out No longer e ligible based on patient's age to complete this topic [facility]-Rotavirus Vaccines Aged Out No lo nger eligible based on patient's age to complete this topic Procedures Procedure Name Priority Date/Time Associated Diagnosis Comments HEMOGLOBIN A1C STAT 05/25/2023 11:47 AM EDT HEPATITIS C ANTIBODY - ED W/REFLEX TO HCV QUANT PCR Routine 05/24/2023 2:47 PM EDT from Last 3 Months or Most Recently Relevant to Health Maintenance Results * (ABNORMAL) Hemoglobin A1c (05/25/2023 11:47 AM EDT) Hemoglobin A1c 6.9(H) <5.7 % 05/25/2023 12:27 PM EDT [facility] Blood Venous blood specimen / Unknown Venipuncture / Unknown 05/25/2023 11:47 AM EDT 05/25/2023 11:54 AM EDT Narrative [facility] - 05/25/2023 12:27 PM EDT HA1C Interpretive Data: Diagnosis of Diabetes: Diabetic > or = 6.5% Pre-diabetic 5.7 to 6.4% Non-diabetic < or = 5.6% Glycemic Targets for Type I and Type II Diabetics: Non- Adults <7.0% Adults <6.0% Children and Adolescents <7.5% Source: [place] [employer]. Standards of medical care in diabetes,2017. Diabetes Care.2017:40 (suppl 1):S1-S135. HbA1c assay performed by an ion-exchange chromatography method that is certified traceable to the DCCT. us [facility] BLOOD ORDERABLES Final Resul t Performing Organization Address City/[facility] Co de Phone Number [facility] [address] [place] [address] * Hepatitis C Antibody - ED (05/24/2023 2:47 PM EDT) [facility] Hep[facility] C Antibody Negative Negative 05/24/2023 3:49 PM EDT [facility] Blood Venous blood specimen / Unknown Venipuncture / Unknown 05/24/2023 2:47 PM EDT 05/24/2023 3:02 PM EDT [facility] BLOOD ORDERABLES Final Resul t Performing Organization Address City/[facility] de Phone Number [facility] [address] [place] [address] from Last 3 Months or Most Recently Relevant to Health Maintenance Insurance MEDICARE [facility] Advance Directives * Full Code (Latest Code Status on File) Date Activated Date Inactivated Comments 05/24/2023 2:51 AM 05/26/2023 7:11 PM Question Answer Comments Patient has decision-making capacity? Yes Care Teams Strategic Advisor Relationship Specialty Start Date End Date Toñito Calloway MD [address] [place] [address] [place] [id number] PCP - General 12/14/20
[2025-07-06 12:17] LABS: Hematocrit 46.2 % (42.0-52.0); Hemoglobin 14.3 g/dL (14.1-18.0); Immature Granulocytes % 18.7 %; Mean Corpuscular HGB Conc 31.0 g/dL (31.8-35.4); Mean Corpuscular Hemoglobin 28.4 pg (27.0-31.2); Mean Corpuscular Volume 91.7 fl (80-94); Nucleated Red Blood Cells % 0 %; Platelet Count 259 K/mm3 (142-424); Red Blood Count 5.04 M/mm3 (4.60-6.20); Red Cell Distribution Width-SD 51.2 fL
[2025-07-06 12:28] LABS: White Blood Count 30.3 K/mm3 (4.8-10.8)
[2025-07-06 13:03] LABS: Albumin Level 4.4 g/dl (3.5-5.0); Chloride 99 mmol/L (98-107); Sodium 140 mmol/L (136-145)
[2025-07-06 13:04] LABS: Potassium 4.6 mmoL/L (3.5-5.1)
[2025-07-06 13:06] LABS: Alanine Aminotransferase 29 U/L (12-78); Albumin/Globulin Ratio 1.8 (1.1-1.8); Anion Gap 17.6 mEq/L (5-15); Aspartate Amino Transferase 34 U/L (17-59); Blood Urea Nitrogen 18 mg/dl (9-20); Carbon Dioxide 28 mmol/L (22.0-30.0); Creatinine,Serum 1.00 mg/dl (0.66-1.25); Estimated Glomerular Filt Rate 73 ml/min (>60); GFR (African American) 88 ML/MIN (>60); Globulin 2.4 g/dL (1.3-3.2); Total Protein,Serum 6.8 g/dl (6.3-8.2)
[2025-07-06 13:07] LABS: Alkaline Phosphatase 95 U/L (38-126); Bilirubin,Total 0.7 mg/dl (0.2-1.3); Calcium 8.7 mg/dl (8.4-10.2); Glucose 152 mg/dl (74-100); Magnesium 2.0 mg/dl (1.6-2.3); Uric Acid 5.6 mg/dl (3.5-8.5)
[2025-07-06 14:32] LABS: RBC Morphology Normal; Total Cells Counted 100
[2025-07-13 10:18] LABS: e14a2 (b3a2) transcript <0.0032
[2025-07-13 10:20] LABS: PDF: SCANNED IMAGE
== END 2025-07-06 23:59 | disposition home or self-care (01) ==
LOC: LAB 10:08
PROVIDERS: PCP Internal Medicine Adolescent Medicine; Visit Provider Internal Medicine Medical Oncology
DX: C92.10 Chronic myeloid leukemia, BCR/ABL-positive, not having achieved remission (principal); I49.1 Atrial premature depolarization; R94.31 Abnormal electrocardiogram [ECG] [EKG]
CPT/HCPCS: 36415; 80053; 80074; 81206; 83735; 84550; 85007; 85025; 93005

== ENCOUNTER 2025-07-12 07:40 | Outpatient (CLI) | payer MEDICARE, SELFPAY ==
[2025-07-12] VITALS (9 sets, daily range): BP systolic 109–126; BP diastolic 62–82; PULSE 64–77; RESP 15–18; TEMP 36.3–36.6; O2SAT 95–99; BMI 34.0
[2025-07-12] MEDS: LACTATED RINGERS 1000ML 1,000 ML 25 ML IV (08:19)
--- NOTE | 2025-07-12 08:30 | CT_ITS ---
FINAL REPORT CLINICAL HISTORY: .BONE MARROW BIOPSY FINDINGS: CT GUIDED BONE MARROW ASPIRATION AND CORE BIOPSY. HISTORY: Chronic myeloid leukemia ATTENDING PHYSICIAN: Dr. Younger PHYSICIAN SENIOR PRINCIPAL SOFTWARE ENGINEER: Dontae Camacho PA-C PROCEDURE: After informed consent was obtained and a timeout was performed, the patient was prepped and draped in usual sterile fashion over the left pelvis. Utilizing local anesthesia and sterile technique with a coaxial drill system, access to left iliac bone was obtained under direct CT guidance. Aspirate was obtained. In addition, a large core of marrow was obtained. The patient received moderate procedural sedation. The patient tolerated the procedure well and left the department in good condition. PROCEDURAL SEDATION: 2 mg of IV Versed and 50 mcg of Fentanyl were administered. Continuous vital sign monitoring was used. An RN was present during the sedation process. Overall sedation time was 30 minutes. IMPRESSION: Status post CT guided bone marrow aspiration and core biopsy as above. Reviewed, Interpreted and Dictated by Mateus Ryan MD Transcribed by CHEO Oropeza Authenticated and [facility]
[2025-07-12 08:32] LABS: Hematocrit 44.2 % (42.0-52.0); Hemoglobin 13.9 g/dL (14.1-18.0); Immature Granulocytes % 20.2 %; Mean Corpuscular HGB Conc 31.4 g/dL (31.8-35.4); Mean Corpuscular Hemoglobin 28.4 pg (27.0-31.2); Mean Corpuscular Volume 90.2 fl (80-94); Nucleated Red Blood Cells % 0.1 %; Platelet Count 223 K/mm3 (142-424); Red Blood Count 4.90 M/mm3 (4.60-6.20); Red Cell Distribution Width-SD 49.5 fL; White Blood Count 29.6 K/mm3 (4.8-10.8)
[2025-07-12 08:39] LABS: INR 1.10 (0.9-1.1); Prothrombin Time 12.1 seconds (10.1-12.5)
[2025-07-12 10:33] LABS: Total Cells Counted 100
[2025-07-12 10:34] LABS: RBC Morphology Normal
[2025-07-12] MEDS: LIDOCAINE 1% 20ML MDV 20 ML (11:24)
[2025-07-12] MEDS: HEPARIN SODIUM 5,000 UNIT/ML VIAL 5000 UNIT (11:24)
[2025-07-12 19:42] LABS: POC Glucose,Bedside 220 gm/dL (70-110)
== END 2025-07-12 10:45 | disposition home or self-care (01) ==
LOC: RAD 07:41
PROVIDERS: PCP Internal Medicine Adolescent Medicine; Visit Provider Internal Medicine Medical Oncology
DX: C92.10 Chronic myeloid leukemia, BCR/ABL-positive, not having achieved remission (principal); R07.9 Chest pain, unspecified
CPT/HCPCS: 38221; 77012; 82962; 85007; 85025; 85610; 99152; J1644; J2003; J2250; J3010; J7120